=== PATIENT | female | born 1965 | race Caucasian/White ===

== ENCOUNTER → 2017-12-13 12:54 | Outpatient (CLI) | payer OTHER, SELFPAY | PROVIDERS: Family Provider Family Medicine; PCP Family Medicine; Visit Provider Physician Assistant Surgical | DX: J02.9 Acute pharyngitis, unspecified (principal) | CPT/HCPCS: 87081 ==

== ENCOUNTER → 2018-01-09 11:33 | Outpatient (CLI) | payer OTHER, SELFPAY ==
--- NOTE | 2018-01-09 11:36 | RAD_ITS ---
STUDY: X-RAY - RIGHT FEMUR REASON FOR STUDY: Female, 52 years old. Pain. TECHNIQUE: Radiological exam, femur, minimum 2 views COMPARISON: None. FINDINGS: Normal visualized femur. Degenerative changes of the knee. Normal visualized soft tissue structure. There is no demonstrated fracture or destructive process. RAD/Femur Min 2 Views IMPRESSION: No acute abnormality. Electronically Signed: Laurent Fischer MD at 22:18 EDT , Service support ,
--- NOTE | 2018-01-09 12:00 | RAD_ITS ---
STUDY: X-RAY - RIGHT KNEE REASON FOR EXAM: Female, 52 years old. Pain. TECHNIQUE: 3 view(s) of the knee. COMPARISON: None. FINDINGS: Normal visualized distal femur. Normal visualized proximal tibia and fibula. Normal proximal tibiofibular articulation. There is no demonstrated fracture. There is mild degenerative arthrosis of the medial femorotibial compartment. Normal lateral femorotibial compartment. 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 There is no demonstrated joint effusion. The soft tissue structures are unremarkable. RAD/Knee 4 or More Views IMPRESSION: No acute fracture or dislocation. Degenerative changes. Electronically Signed: Laurent Fischer MD at 22:19 EDT , Service support ,
== END ==
PROVIDERS: Family Provider Family Medicine; PCP Family Medicine; Visit Provider Family Medicine
DX: M25.561 Pain in right knee (principal)
CPT/HCPCS: 73552; 73564

== ENCOUNTER → 2018-03-22 16:43 | Outpatient (CLI) | payer OTHER, SELFPAY ==
[2018-03-07 14:20] VITALS: BMI 34.7
[2018-03-22 17:42] LABS: Follicle Stimulating Hormone 46.5 mIU/mL
== END ==
PROVIDERS: Family Provider Family Medicine; PCP Family Medicine; Referring Provider Nurse Practitioner Women's Health; Visit Provider Nurse Practitioner Women's Health
DX: N92.6 Irregular menstruation, unspecified (principal)
CPT/HCPCS: 36415; 83001

== ENCOUNTER → 2018-04-10 07:55 | Outpatient (CLI) | payer OTHER, SELFPAY ==
[2018-03-07 14:20] VITALS: BMI 34.7
--- NOTE | 2018-04-10 08:00 | US_ITS ---
STUDY: ULTRASOUND OF THE FEMALE PELVIS - COMPLETE REASON FOR EXAM: Female, 53 years old. LMP: TECHNIQUE: TECHNICAL QUALITY: Adequate. COMPARISON: None. FINDINGS: The uterus is anteverted and is in a midline position. The uterus measures 8.4 x 4.9 x 3.8 cm. Normal uterine cervix. The endometrium measures 2.6 mm in thickness. There is no demonstrated endometrial mass. There is no demonstrated myometrial mass. The patient does not have an I.U.D. The right ovary is visualized. The right ovary measures 2 x 1.8 x 0.3 cm with a small follicle measures 6.6 x 7 mm. There is no right ovarian cyst or ovarian mass. There is no visualized right adnexal mass or complex lesion. There is normal arterial and normal venous vascularity. The left ovary is visualized. The left ovary measures 2.3 x 2.3 x 0.8 cm cm. There is no left ovarian cyst or ovarian mass. There is no visualized left adnexal mass or complex lesion. There is normal arterial and normal venous vascularity. There is no fluid in the cul-de-sac. US/Transvaginal Non- IMPRESSION: Normal female pelvis. Electronically Signed: Branden Vitale, at 13:11 EST Tel , Service support ,
--- NOTE | 2018-04-10 08:00 | US_ITS ---
STUDY: ULTRASOUND OF THE FEMALE PELVIS - COMPLETE REASON FOR EXAM: Female, 53 years old. LMP: TECHNIQUE: TECHNICAL QUALITY: Adequate. COMPARISON: None. FINDINGS: The uterus is anteverted and is in a midline position. The uterus measures 8.4 x 4.9 x 3.8 cm. Normal uterine cervix. The endometrium measures 2.6 mm in thickness. There is no demonstrated endometrial mass. There is no demonstrated myometrial mass. The patient does not have an I.U.D. The right ovary is visualized. The right ovary measures 2 x 1.8 x 0.3 cm with a small follicle measures 6.6 x 7 mm. There is no right ovarian cyst or ovarian mass. There is no visualized right adnexal mass or complex lesion. There is normal arterial and normal venous vascularity. The left ovary is visualized. The left ovary measures 2.3 x 2.3 x 0.8 cm cm. There is no left ovarian cyst or ovarian mass. There is no visualized left adnexal mass or complex lesion. There is normal arterial and normal venous vascularity. There is no fluid in the cul-de-sac. US/Pelvic (Non ) IMPRESSION: Normal female pelvis. Electronically Signed: Branden Vitale, at 13:11 EST Tel , Service support ,
== END ==
PROVIDERS: Family Provider Family Medicine; PCP Family Medicine; Referring Provider Nurse Practitioner Women's Health; Visit Provider Nurse Practitioner Women's Health
DX: N92.6 Irregular menstruation, unspecified (principal)
CPT/HCPCS: 76830; 76856; 93976

== ENCOUNTER → 2018-05-09 16:30 | Outpatient (CLI) | payer OTHER, SELFPAY ==
[2018-03-07 14:20] VITALS: BMI 34.7
--- NOTE | 2018-05-09 16:50 | RAD_ITS ---
HISTORY: patient states she has had neck pain for many years, recently pain in left arm running from neck started a couple weeks ago COMPARISON: None FINDINGS: XR Spine Cervical 6 views The cervical vertebra show normal height and alignment. No fracture or acute disease. C3-4 mild disc space narrowing. The posterior elements appear intact. No spondylolisthesis. Neural foramina appear patent. The C1-C2 relationship appears normal. Small cervical rib on the right. RAD/Cerv Spine 4 or 5 Views IMPRESSION: 1. No significant findings. Minor degenerative change. 2. Normal cervical vertebral alignment. 3. Small cervical rib on the right. at [id number] Reported and signed by: Kevin Hook MD Electronically Signed: Kevin Hook, at 4:25 EST Tel , Service support ,
--- OUTSIDE RECORDS SUMMARY | 2018-07-11 22:55 | XMS RPT_ITS ---
:1965 Author Organization [place] Support Name Relationship Address Phone RYANADAMA Unavailable [address] + [place] [address] [facility] Unavailable [address] + [place] [address] ADAMA DAVIS Unavailable [address] + [place] [address] [facility] Unavailable [address] + [place] [address] ADAMA DAVIS Unavailable [address] + [place] [address] [facility] Unavailable [address] + [place] [address] ADAMA DAVIS Unavailable [address] + [place] [address] [facility] Unavailable [address] + [place] [address] ADAMA DAVIS Unavailable [address] + [place] [address] [facility] Unavailable [address] + [place] [address] ADAMA DAVIS Unavailable [address] + [place] [address] [facility] Unavailable [address] + [place] [address] ADAMA DAVIS Unavailable [address] + [place] [address] [facility] Unavailable [address] + [place] [address] ADAMA DAVIS Unavailable [address] + [place] [address] [facility] Unavailable [address] + [place] [address] ADAMA DAVIS Unavailable [address] [phone] [place] [address] [facility] Unavailable [address] + [place] [address] Care Team Providers Name Role Phone Teressa Joe Attending Unavailable Heath, Teressa Referring Unavailable TOMCHAK, MAYANK Primary Care Unavailable TOMCHAK, MAYANK Attending Unavailable TOMCHAK, MAYANK Referring Unavailable TOMCHAK, MAYANK Primary Care Unavailable [facility] [facility] Attending Unavailable TOMCHAK, MAYANK Referring Unavailable Dylan, Jason Attending Unavailable TOMCHAK, MAYANK Referring Unavailable TOMCHAK, MAYANK Primary Care Unavailable Dylan, Jason Attending Unavailable Dylan, Jason Referring Unavailable TOMCHAK, MAYANK Primary Care Unavailable ASSESSMENT, HEALTH RISK Attending Unavailable ASSESSMENT, HEALTH RISK Referring Unavailable TOMCHAK, MAYANK Primary Care Unavailable TOMCHAK, MAYANK Attending Unavailable TOMCHAK, MAAYNK Referring Unavailable TOMCHAK, MAYANK Primary Care Unavailable Heath, Teressa Attending Unavailable TOMCHAK, MAYANK Referring Unavailable [place], Teressa Attending Unavailable [place], Teressa Referring Unavailable TOMCHAK, MAYANK Primary Care Unavailable PROBLEMS PROBLEMS DATE TYPE CONDITION / CODE ATTENDING STATUS SOURCE 05/09/2018 Unknown M54.2 - MAYANK GREENWOOD Active [place] Cervicalgia / Community M54.2(ICD-10) Hospital Repository 03/07/2018 Unknown N92.6 - Irregular [place], Teressa Active [place] menstruation, Community unspecified / Hospital N92.6(ICD-10) Repository 01/09/2018 Unknown M25.561 - Pain in MAYANK GREENWOOD Active [place] right knee / Community M25.561(ICD-10) Hospital Repository 12/13/2017 Unknown J02.9 - Acute Jason Richardson Active [facility] [place] pharyngitis, Community unspecified / Hospital J02.9(ICD-10) Repository PROCEDURES PROCEDURES No Procedure Records FoundRESULTS RESULTS CERV SPINE 4 OR 5 Observed: 05/09/2018 Status: F Source: [place] VIEWS 4:43 PM [facility] HOSPITAL REPOSITORY [facility] Imaging Services [address] [place] [address] Cerv Spine 4 or 5 Views MR#: [id number] Acct: [id number] Name: LUIS DAVIS Rep #: [id number] : 1965 F 53 From: Kevin Hook MD PCP: Mayank Greenwood MD Status: REG CLI Study: Cerv Spine 4 or 5 Views Date of Exam: 05/09/18 Exam# [id number] Ordering Dr: Mayank Greenwood MD HISTORY: patient states she has had neck pain for many years, recently pain in left arm running from neck started a couple weeks ago COMPARISON: None FINDINGS: XR Spine Cervical 6 views The cervical vertebra show normal height and alignment. No fracture or acute disease. C3-4 mild disc space narrowing. The posterior elements appear intact. No spondylolisthesis. Neural foramina appear patent. The C1-C2 relationship appears normal. Small cervical rib on the right. RAD/Cerv Spine 4 or 5 Views IMPRESSION: 1. No significant findings. Minor degenerative change. 2. Normal cervical vertebral alignment. 3. Small cervical rib on the right. at [id number] Reported and signed by: Kevin Hook MD Electronically Signed: Kevin Hook, at 4:25 EST Tel , Service support , CC: Mayank Greenwood MD Generator Worker: Signed TRANSVAGINAL Observed: 04/10/2018 Status: F Source: [place] NON- 8:00 AM [facility] REPOSITORY [facility] Imaging Services [address] [place] [address] Transvaginal Non- MR#: [id number] Acct: [id number] Name: LUIS DAVIS Rep #: [id number] : 1965 F 53 From: Branden Vitale MD PCP: Mayank Greenwood MD Status: REG CLI Study: Transvaginal Non- Date of Exam: 04/10/18 Exam# [id number] Ordering Dr: Teressa Joe RADIATION MONITOR-C ADDENDUM by Severiano Langford MD on 04/20/18 at 0950 ADDENDUM This is an addendum report. There is a 2.2 cm x 1.6 cm x 1.5 cm uterine fibroid along the anterior uterine fundus. Electronically Signed: Severiano Langford MD at 9:50 EST Tel [phone], Service support , 04/20/18954 Date cc: REGINA Joe; Mayank Greenwood MD * Signed ADDENDUM by Severiano Langford MD on 04/20/18 at 0950 US/Transvaginal Non- 04/20/18954 Date cc: REGINA Joe; Mayank Greenwood MD * Signed STUDY: ULTRASOUND OF THE FEMALE PELVIS - COMPLETE REASON FOR EXAM: Female, 53 years old. LMP: TECHNIQUE: TECHNICAL QUALITY: Adequate. COMPARISON: None. FINDINGS: The uterus is anteverted and is in a midline position. The uterus measures 8.4 x 4.9 x 3.8 cm. Normal uterine cervix. The endometrium measures 2.6 mm in thickness. There is no demonstrated endometrial mass. There is no demonstrated myometrial mass. The patient does not have an I.U.D. The right ovary is visualized. The right ovary measures 2 x 1.8 x 0.3 cm with a small follicle measures 6.6 x 7 mm. There is no right ovarian cyst or ovarian mass. There is no visualized right adnexal mass or complex lesion. There is normal arterial and normal venous vascularity. The left ovary is visualized. The left ovary measures 2.3 x 2.3 x 0.8 cm cm. There is no left ovarian cyst or ovarian mass. There is no visualized left adnexal mass or complex lesion. There is normal arterial and normal venous vascularity. There is no fluid in the cul-de-sac. US/Transvaginal Non- IMPRESSION: Normal female pelvis. Electronically Signed: Branden Vitale, at 13:11 EST Tel , Service support , CC: REGINA Joe; Mayank Greenwood MD Generator Worker: Signed PELVIC (NON ) Observed: 04/10/2018 Status: F Source: [place] 8:00 AM [facility] REPOSITORY [facility] Imaging Services [address] [place] [address] Pelvic (Non ) MR#: [id number] Acct: [id number] Name: LUIS DAVIS Rep #: [id number] : 1965 F 53 From: Branden Vitale MD PCP: Mayank Greenwood MD Status: REG CLI Study: Pelvic (Non ) Date of Exam: 04/10/18 Exam# [id number] Ordering Dr: Teressa Joe RADIATION MONITOR-C ADDENDUM by Severiano Langford MD on 04/20/18 at 0950 ADDENDUM This is an addendum report. There is a 2.2 cm x 1.6 cm x 1.5 cm uterine fibroid along the anterior uterine fundus. Electronically Signed: Severiano Langford MD at 9:50 EST Tel [phone], Service support , 04/20/1850 Date cc: REGINA Joe; Mayank Greenwood MD * Signed ADDENDUM by Severiano Langford MD on 04/20/18 at 0950 US/Pelvic (Non ) 04/20/1855 Date cc: REGINA Joe; Mayank Greenwood MD * Signed STUDY: ULTRASOUND OF THE FEMALE PELVIS - COMPLETE REASON FOR EXAM: Female, 53 years old. LMP: TECHNIQUE: TECHNICAL QUALITY: Adequate. COMPARISON: None. FINDINGS: The uterus is anteverted and is in a midline position. The uterus measures 8.4 x 4.9 x 3.8 cm. Normal uterine cervix. The endometrium measures 2.6 mm in thickness. There is no demonstrated endometrial mass. There is no demonstrated myometrial mass. The patient does not have an I.U.D. The right ovary is visualized. The right ovary measures 2 x 1.8 x 0.3 cm with a small follicle measures 6.6 x 7 mm. There is no right ovarian cyst or ovarian mass. There is no visualized right adnexal mass or complex lesion. There is normal arterial and normal venous vascularity. The left ovary is visualized. The left ovary measures 2.3 x 2.3 x 0.8 cm cm. There is no left ovarian cyst or ovarian mass. There is no visualized left adnexal mass or complex lesion. There is normal arterial and normal venous vascularity. There is no fluid in the cul-de-sac. US/Pelvic (Non ) IMPRESSION: Normal female pelvis. Electronically Signed: Branden Vitale, at 13:11 EST Tel , Service support , CC: REGINA Joe; Mayank Greenwood MD Generator Worker: Signed FOLLICLE STIMULATING Collected: 03/22/2018 Status: F Source: [place] HORMONE 4:49 PM [facility] REPOSITORY TYPE CODE TESTS RESULT OUT OF RANGE REFERENCE UNITS LAB L3100.5125 mIU/mL Normal FSH 46.5 Result Comment: NORMAL REFERENCE RANGES FEMALE FOLLICULAR 2.3 - 12.6 mIU/mL MID-CYCLE PEAK 5.2 - 17.5 mIU/mL LUTEAL 1.7 - 12.9 mIU/mL POST-MENOPAUSAL ON MHT 5.9 - 72.8 mIU/mL NOT ON MHT 12.7 - 132.2 mlU/mL MALE 0.7 - 10.8 mIU/mL NEW TEST METHOD AND REFERENCE RANGES SEPTEMBER 06, 2011 Performed By: #### L3100.5125 #### [facility] [address] [place], [address] TOOL AND DIE SUPERVISOR OFFICE VISIT Observed: 03/07/2018 Status: F Source: [place] REPORT 4:39 PM [facility] REPOSITORY [facility] [address] [place] [address] OFFICE VISIT Date of Service: 03/07/18 MR#: [id number] Acct: [id number] Name: LUIS DAVIS Rep #: [id number] : 1965 Provider: REGINA Joe Age/Sex: 53/F Location: [facility] [place] [facility] Status: Signed Intake Vital Signs03/07/18 Height 5 ft 4 in 03/07/18 Weight: 202 lb 03/07/18 Body Mass Index (BMI) 34.7 03/07/18 Blood Pressure 118/80 Intake Visit Reasons: ANNUAL Metal Tube Cutter Required: No Is patient in pain?: No Allergies chlorpheniramine [From Tylenol Sinus Congestion Pain] Allergy (Verified 03/07/18 14:22) Unknown guaifenesin [From Tylenol Sinus Congestion Pain] Allergy (Verified 03/07/18 14:22) Unknown phenylephrine HCl [From Tylenol Sinus Congestion Pain] Allergy (Verified 03/07/18 14:22) Unknown Medications Paroxetine HCl [Paxil] 10 mg PO DAILY 10/28/14 [History Confirmed 03/07/18] aspirin 500 mg-sod bicarb 1,985 mg-citric acid 1,000 mg efferv tablet ea PO 12/13/17 [History Confirmed 03/07/18] Is last menstrual period known: No Post menopausal: No Patient : No : No Nurse's Note: Pt. states she has had random menses. Several within a few months and then none for several months. When having menses the bleeding has been extremely heavy with cramps. [facility] Medical History HISTORY OF BUNION REMOVAL (Acute) Hay fever (Acute) Hemorrhoids (Acute) History of lipoma (Acute) Knee pain (Acute) NECK/BACK PAIN (Acute) Shoulder pain (Acute) Social History Smoking Status: Never smoker alcohol intake: current alcohol intake frequency: holidays/special occasions only Pregancy History 2 Elective abortions Hx Para 2 Spontaneous abortions Past Pregnancies Del. DatName GA/WeeksOutcome Route [facility] LocaProviderFOB e ht en tn Unknown William 1987 Unknown Gabby 1989 HPI ANNUAL: Details: LUIS DAVIS is a 53 year old who presents for annual exam. Had menses July, August and November. Last PAP: 2014 History of abnormal PAP: no Last mammogram: 03/2017 History of abnormal mammogram: neg biopsy Colon cancer screening: none ROS Const Constitutional: Denies fatigue, weight gain or weight loss Cardio Card: Denies chest pain Resp Resp: Denies cough or shortness of breath with activity GI GI: Denies abdominal pain, constipation, change in stools, vomiting or bloating : Reports as per HPI; denies urinary frequency, pelvic pain, urinary urgency, vaginal discharge, vaginal itching, urinary incontinence or difficulty urinating Exam Const General: cooperative, healthy appearing, no acute distress, well developed Orientation: alert, oriented to person, oriented to place HENDE Head: normal to inspection Neck Neck: normal visual inspection Thyroid: thyroid normal Lymphatic: no lymphadenopathy noted Chest Breast inspection: normal inspection of the breasts, normal inspection of the axillae Breast palpation: normal palpation of the breasts, normal palpation of the axillae, no axillary lymphadenopathy Resp Effort AND Inspection: normal respiratory effort GI Palpation: soft, nontender, no masses Rectal Exam: deferred External Female Exam: normal external appearance, normal appearance of the urethra Urethra: normal appearance of the urethra, normal palpation Speculum Exam - Vagina: normal appearance of the vagina, normal vaginal discharge Speculum Exam - Cervix: normal appearance of the cervix Bimanual Exam- Vagina AND Uterus: normal bimanual exam, uterine size normal, uterine shape normal, uterus non-tender Bimanual Exam- Adnexa, other: normal adnexae, no adnexal masses, adnexae non-tender, pelvic support normal Pelvic Support: normal Neuro General: alert, oriented x3 Psych Affect: normal affect Assessment AND Plan Problems 1. Encounter for gynecological examination with abnormal finding Z01.411 2. Dysfunctional uterine bleeding N93.8 Plan Completed breast and pelvic exam Reviewed diet and exercise Pap 2014 Mammogram scheduled Ultrasound and FSH: call results. Consider EMB dependent on those Colonoscopy encouraged Bone density NA RTO 1 year, prn with problems Teressa Joe ADVERTISING EDITOR Orders Orders: Coding Level of Care Code Off vis,est,prev 40-64yrs Diagnoses Encounter for gynecological examination with abnormal finding Z01.411 Gynecological examination findings: abnormal findings PRESENT Dysfunctional uterine bleeding N93.8 03/07/18 1639 <Electronically signed by Teressa STEWART> Date Teressa STEWART Cosigner Signature: Date (if applicable) CC: FEMUR MIN 2 VIEWS Observed: 01/09/2018 Status: F Source: [place] 11:37 AM [facility] REPOSITORY [facility] Imaging Services [address] [place] [address] Femur Min 2 Views MR#: [id number] Acct: [id number] Name: LUIS DAVIS Rep #: [id number] : 1965 F 52 From: Laurent Fischer MD PCP: Mayank Greenwood MD Status: REG CLI Study: Femur Min 2 Views Date of Exam: 01/09/18 Exam# [id number] Ordering Dr: Mayank Greenwood STUDY: X-RAY - RIGHT FEMUR REASON FOR STUDY: Female, 52 years old. Pain. TECHNIQUE: Radiological exam, femur, minimum 2 views COMPARISON: None. FINDINGS: Normal visualized femur. Degenerative changes of the knee. Normal visualized soft tissue structure. There is no demonstrated fracture or destructive process. RAD/Femur Min 2 Views IMPRESSION: No acute abnormality. Electronically Signed: Laurent Fischer MD at 22:18 EDT , Service support , CC: Mayank Greenwood MD Generator Worker: Signed KNEE 4 OR MORE Observed: 01/09/2018 Status: F Source: [facility] 11:37 AM [facility] REPOSITORY [facility] Imaging Services [address] [place] [address] Knee 4 or More Views MR#: [id number] Acct: [id number] Name: LUIS DAVIS Rep #: [id number] : 1965 F 52 From: Laurent Fischer MD PCP: Mayank Greenwood MD Status: REG CLI Study: Knee 4 or More Views Date of Exam: 01/09/18 Exam# [id number] Ordering Dr: Mayank Greenwood STUDY: X-RAY - RIGHT KNEE REASON FOR EXAM: Female, 52 years old. Pain. TECHNIQUE: 3 view(s) of the knee. COMPARISON: None. FINDINGS: Normal visualized distal femur. Normal visualized proximal tibia and fibula. Normal proximal tibiofibular articulation. There is no demonstrated fracture. There is mild degenerative arthrosis of the medial femorotibial compartment. Normal lateral femorotibial compartment. 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 There is no demonstrated joint effusion. The soft tissue structures are unremarkable. RAD/Knee 4 or More Views IMPRESSION: No acute fracture or dislocation. Degenerative changes. Electronically Signed: Laurent Fischer MD at 22:19 EDT , Service support , CC: Mayank Greenwood MD Generator Worker: Signed [employer], EMPLOYEE Collected: 01/03/2018 Status: F Source: [place] 7:48 AM [facility] REPOSITORY TYPE CODE TESTS RESULT OUT OF RANGE REFERENCE UNITS LAB L400.3000 Yellow COLOR Normal Yellow LAB L400.3050 Clear Normal CLARITY Clear LAB L400.3200 Normal mg/dl Normal GLUCOSE, UR Normal LAB L400.3300 Negative mg/dL Normal BILIRUBIN URINE Negative LAB L400.3400 Negative mg/dl Normal KETONE UR Negative LAB L400.3465 1.002-1.030 Normal SP.GR. DIPSTX 1.020 LAB L400.3550 5.0 - 8.0 pH UR Normal 6.0 LAB L400.3600 Negative mg/dl PROT Normal DIPSTX Negative LAB L400.3700 Normal mg/dl Normal UROBILI Normal LAB L400.3750 Negative Normal NITRITE UR Negative LAB L400.3780 Negative /ul Normal OCCULT BLOOD-UR Negative LAB L400.3800 Negative /ul High LEUK 25 ESTERASE Performed By: #### L400.0100 #### [facility] [address] [place], [address] CBC, EMPLOYEE Collected: 01/03/2018 Status: F Source: [place] 7:48 AM [facility] REPOSITORY TYPE CODE TESTS RESULT OUT OF RANGE REFERENCE UNITS LAB L100.1000 4.4-11.0 K/mm3 Normal WBC 4.4 LAB L100.1200 4.2-5.4 M/mm3 Normal RBC 4.72 LAB L100.1300 12.0-15.0 g/dl Normal HGB 14.1 LAB L100.1400 37-47 % Normal HCT 41.9 LAB L100.1500 81-99 fL Normal MCV 88.8 LAB L100.1600 27.0-32.0 pg Normal MCH 29.9 LAB L100.1700 32-36 g/gl Normal MCHC 33.7 LAB L100.1810 11.6-14.6 % Normal RDW CV 13.1 LAB L100.1820 35.1-43.9 fl Normal RDW SD 42.3 LAB L100.1900 150-450 K/mm3 Normal PLT 329 LAB L100.2000 6.2-12.0 fl Normal MPV 9.4 LAB L100.2110 47-70 % Normal NEUT% 57.1 LAB L100.2210 19-41 % Normal LY% 31.5 LAB L100.2310 0-10 % Normal MONO% 8.4 LAB L100.2410 0-5 % Normal EO% 2.3 LAB L100.2510 0-1 % Normal BASO% 0.7 LAB L100.2620 2.0-7.7 X10 3/uL Normal Absolute Neut 2.5 LAB L100.2720 0.83-4.51 X10 3/ul Normal Absolute Lymph 1.39 Performed By: #### L100.0200 #### [facility] [address] [place], [address] NICOTINE URINE DRUG Collected: 01/03/2018 Status: F Source: [facility] [employer] SCREEN 7:48 AM [facility] REPOSITORY TYPE CODE TESTS RESULT OUT OF RANGE REFERENCE UNITS LAB L505.6250 TO BE Normal CONFIRMED Result Comment: CONFIRMATORY TESTING FOR ALL POSITIVE URINE DRUG SCREEN RESULTS WILL ONLY BE SENT OUT UPON PHYSICIAN ORDER. The results of Urine Drug Screen methods provide only preliminary analytical test results. A more specific alternate chemical method must be used in order to obtain a confirmed analytical result. Gas chromatography/mass spectrometery (GC/MS) is the preferred confirmatory method. Clinical consideration and professional judgement should be applied to any drug of abuse test result, particularly when preliminary positive results are used. LAB L505.6229 <200 ng/mL Normal COT DRG Negative SCREEN Result Comment: Cotinine is the first-stage metabolite of Nicotine. Performed By: #### L505.6240 #### [facility] [address] [place], [address] EMPLOYEE PROFILE Collected: 01/03/2018 Status: F Source: [place] 7:48 AM [facility] REPOSITORY TYPE CODE TESTS RESULT OUT OF RANGE REFERENCE UNITS LAB L501.0100 74-106 mg/dL Normal GLU 89 Result Comment: Please note revised GLUCOSE reference range effective 2017. LAB L501.1000 7-18 mg/dL Normal BUN 12 LAB L501.1100 0.55-1.02 mg/dL Normal CREAT,SERUM 0.72 Result Comment: The validity of the calculated GFR AND GFRAA in patients over 70 years has not been determined. Clinical correlation is essential. LAB L501.1110 >60 mL/min Normal EST GFR 89 Result Comment: Non- GFR Calc LAB L501.1115 >60 mL/min Normal EST GFR - AA 107 Result Comment: GFR Calc LAB L501.1300 10-20 RATIO Normal BUN/CRE 16.6 LAB L501.1400 2.6-6.0 mg/dL Normal URIC 5.5 Result Comment: The drugs N-Acetylcysteine and Metamizole may falsely depress this assay. LAB L501.1500 6.4-8.2 g/dL Normal T PROT 7.3 LAB L501.1800 3.2-5.0 g/dL Normal ALB 3.4 LAB L501.1950 2.2-4.2 g/dL Normal GLOB 3.9 LAB L501.2000 0.9-2.4 RATIO Normal A/G 0.9 LAB L501.2200 8.5-10.1 mg/dL Normal CA 8.7 LAB L501.2300 2.5-4.9 mg/dL Normal PHOS 3.5 LAB L501.4100 15-37 U/L Normal AST 17 LAB L501.4305 45-117 U/L Normal ALK P 75 LAB L501.4405 13-56 U/L Normal ALT 20 LAB L501.4600 0.20-1.00 mg/dL Normal T BILI 0.40 LAB L501.4700 0.00-0.30 mg/dL Normal D BILI 0.11 LAB L501.4900 200 mg/dL High CHOL 216 Result Comment: <200 mg/dL Desirable 200-240 mg/dL Borderline >240 mg/dL High Risk LAB L501.5000 mg/dL Normal TRIG 119 Result Comment: The drugs N-Acetylcysteine and Metamizole may falsely depress this assay. Serum Triglycerides Reference Interval Normal <150 mg/dL Borderline high 150 - 199 mg/dL High 200 - 499 mg/dL Very High > or = 500 mg/dL LAB L501.5300 136-145 mmol/L Normal NA 142 LAB L501.5600 3.5-5.1 mmol/L Normal K 4.4 LAB L501.5900 98-107 mmol/L Normal CL 106 LAB L501.6100 21.0-32.0 mmol/L Normal CO2 28.0 LAB L501.6200 5-15 Normal 8 GAP LAB L501.6400 mg/dL Normal HDL 48 Result Comment: The drugs N-Acetylcysteine and Metamizole may falsely depress this assay. Reference Range HDL <40 mg/dL Low HDL Cholesterol HDL >or= 60 mg/dL High HDL Cholesterol LAB L501.6475 Normal CHOL:HDL 4.50 LAB L501.6500 0-130 mg/dL High LDL 144 LAB L501.6600 5-40 mg/dL Normal VLDL 24 LAB L504.2610 84-246 U/L Normal LDH 150 Performed By: #### L500.2900 #### [facility] [address] [place], [place], [address] Observed: 12/14/2017 Status: F Source: [place] CULTURE, R/O STREP A 1:21 PM [facility] REPOSITORY HEENA Culture No Group A Beta Streptococcus isolated. * This cultures intended use is to screen for Beta Streptococcus A only. All other pathogens and potential pathogens will not be screened for or reported. If a complete workup of all potential pathogens is indicated an order for a routine throat culture is required. Performed By: #### M100.010 #### [facility] [address] [place], [place], [address] URGENT CARE VISIT Observed: 12/13/2017 Status: F Source: [place] REPORT 11:46 AM [facility] REPOSITORY [facility] [address] [place] [address] [address] [place] [address] OFFICE VISIT Date of Service: 12/13/17 MR#: [id number] Acct: [id number] Name: LUIS DAVIS Rep #: [id number] : 1965 Provider: Jason CRAIN Age/Sex: 52/F Location: [facility] Status: Signed Intake Vital Signs12/13/17 Height 5 ft 4 in 12/13/17 Weight: 195 lb 12/13/17 Body Mass Index (BMI) 33.5 12/13/17 Blood Pressure 130/84 Intake Visit Reasons: SORE THROAT, HEAD CONGESTION/CHEST Metal Tube Cutter Required: No Accompanied by: SELF Is patient in pain?: No Allergies chlorpheniramine [From Tylenol Sinus Congestion Pain] Allergy (Verified 12/13/17 10:43) Unknown guaifenesin [From Tylenol Sinus Congestion Pain] Allergy (Verified 12/13/17 10:43) Unknown phenylephrine HCl [From Tylenol Sinus Congestion Pain] Allergy (Verified 12/13/17 10:43) Unknown Medications Paroxetine HCl [Paxil] 10 mg PO DAILY 10/28/14 [History Confirmed 12/13/17] aspirin 500 mg-sod bicarb 1,985 mg-citric acid 1,000 mg efferv tablet ea PO 12/13/17 [History Confirmed 12/13/17] PFSH Medical History HISTORY OF BUNION REMOVAL (Acute) Hay fever (Acute) Hemorrhoids (Acute) History of lipoma (Acute) Knee pain (Acute) NECK/BACK PAIN (Acute) Shoulder pain (Acute) Social History Smoking Status: Never smoker alcohol intake: current alcohol intake frequency: holidays/special occasions only HPI HPI Details: LUIS DAVIS, is a 52 F who presents to the office today for concern of sore throat for the past 24 hours. Patient states she has been around several coworkers who have reported to have strep. She denies any fever, chills, sweats. No nausea, vomiting, diarrhea. No other associated symptoms or alleviating/aggravating factors. ROS Const Constitutional: No fever(s), headache(s), anorexia, chills or abnormal sleep pattern ENT ENT: Positive for post nasal drip, sore throat, nasal congestion and nasal discharge; no headache(s) or ear pain Resp Respiratory: No shortness of breath Cardio Cardiology: No irregular heart rhythm or palpitations Gastro GI: No nausea/dyspepsia Neuro Neurology: No headache(s) or behavioral changes Psych Psychiatric: No abnormal sleep pattern, No behavioral changes Exam Const General: cooperative, healthy appearing HENDE Head: normal to inspection Ears: hearing grossly normal bilaterally, TM's normal bilaterally, EAC's normal Nose: external nose normal, nasal discharge clear Mouth: oral mucosae normal Throat: abnormal tonsil bilaterally Resp Effort AND Inspection: normal respiratory effort Auscultation: Bilateral: Clear to Auscultation Cardio Palpation: normal PMI Rate: regular rate Rhythm: regular rhythm Neuro General: CN's II-XI intact bilaterally, alert Psych Appearance: grossly normal Mental Status: mental status grossly normal Results BMSRAPIDSTREPA Office Rapid Strep A Negative Last Edit by Jo Kat on 12/13/17 10:55 Assessment AND Plan Plan Rapid strep in the office negative, patient advised we will send swab for culture. Encouraged to get plenty of rest, drink lots of clear liquids, and use Tylenol or Ibuprofen (unless contraindicated) for fever and comfort. Patient also educated on other symptomatic management techniques. To be seen in 7-10 days if no improvement; sooner if worsening of symptoms. Orders Orders: Medications Discontinued: oxycodone-acetaminophen 5-325 mg Di1 - 2 tabs PO Q6H PRN PRN Moderate-Se Jo Kat scontinued Reason: Pt refuses the tesvere Pain (-01/25) t Coding Level of Care Code Off vis,new,level 3 12/13/17 1146 <Electronically signed by Jason CRAIN> Date Jason CRAIN Cosigner Signature: Date (if applicable) CC: ALLERGIES ALLERGIES DATE TYPE / CODE NAME / CODE REACTION SEVERITY SOURCE 03/07/2018 Drug phenylephrine Unknown Unknown [place] Allergy/416 HCl/[id number]([facility] [id number]([facility] CT) Repository 03/07/2018 Drug guaifenesin/[id number] Unknown Unknown [place] Allergy/416 724(RXNORM) [facility] [id number]([facility] CT) Repository 03/07/2018 Drug chlorpheniramine/F0 Unknown Unknown [place] Allergy/416 [id number](RXNORM) [facility] [id number][facility] CT) Repository ENCOUNTERS ENCOUNTERS ADMIT/DISCHARGE ACCOUNT ADMITTING ENCOUNTER LOCATION SOURCE NUMBER CLASS 05/09/2018 [id number] Ambulatory [place] 7 [facility] ing:RAD.FUTUR Repository E 04/10/2018 [id number] Ambulatory [place] 6 [facility] ing:OPUS Repository 03/22/2018 [id number] Ambulatory [place] 6 [facility] ing:LAB Repository 03/07/2018/ [id number] Ambulatory BMSBuilding:B [place] 8 5 [facility] Repository 01/09/2018 [id number] Ambulatory [place] 5 [facility] ing:RAD.FUTUR Repository E 01/03/2018 [id number] Ambulatory [place] 1 [facility] ing:EMPH Repository 12/13/2017 [id number] Ambulatory [place] 0 [facility] ing:LABSPEC Repository 12/13/2017/ [id number] Ambulatory BMSBuilding:B [place] 8 2 [facility] Repository 08/30/2017 [id number] Ambulatory BMSBuilding:B [place] 2 [place] Repository PAYERS PAYERS ENCOUNTER GUARANTOR PAYER SUBSCRIBER SOURCE 05/09/2018 LUIS MARQUEZ Primary Insurance:[facility] LUIS Montgomery [id number] [facility] ARDREYDOB: [address] [id number] [address]Jlc: Number: Repository [id number] (HP) Date:4172-69-74[address] [address]FCYTJIB, [place] [address]ZM: CHECK WEBSITE 05/09/2018 Secondary NOT GIVENUNK [place] Insurance:SELF PAY [facility] Number: Effective Repository Date:2018-05-09 04/10/2018 LUIS MARQUEZ Primary Insurance:[facility] LUIS Martinezoster [id number] [facility] ARDREYDOB: [address] [address]Coi: Number: Repository [id number] (HP) Date:0423-78-17KK [address] [address]JUCRRWSX, [place] [address]XC: CHECK WEBSITE 04/10/2018 Secondary NOT GIVENUNK [place] Insurance:SELF PAY [facility] Number: Effective Repository Date:2018-03-07 03/22/2018 E [place] Primary Insurance:[facility] Javon Martinezoster [id number] [facility] ARDREYDOB: [address] [address]Ncy: Number: Repository [id number] (HP) Date:0664-70-76YH [address] [address]PJAXGEXCQ, [place] [address]CA: CHECK WEBSITE 03/22/2018 Secondary NOT GIVENUNK [place] Insurance:SELF PAY [facility] Number: Effective Repository Date:2018-03-22 03/07/2018 E [place] Primary Insurance:[facility] Javon Martinezoster [id number] [facility] ARDREYDOB: [address] [address]Ktf: Number: Repository [id number] (HP) Date:7807-29-51CV [address] [address]ZCXYDQQKS, [place] [address]MF: CHECK WEBSITE 03/07/2018 Secondary NOT GIVENUNK [place] Insurance:SELF PAY [facility] Number: Effective Repository Date:2018-03-07 01/09/2018 E [place] Primary Insurance:[facility] Javon Martinezoster [id number] [facility] ARDREYDOB: [address] [id number] [facility] [address]Vsp: Number: Repository [id number] () Date:1050-99-48KH [address] [address]UXFDSAHO, [place] [address]EB: CHECK WEBSITE 01/09/2018 Secondary NOT GIVENUNK [place] Insurance:SELF PAY [facility] Number: Effective Repository Date:2018-01-05 01/03/2018 E [place] Primary NOT GIVENUNK [place] [id number] TR Insurance:SELF PAY [address] [address]Bpo: Number: Effective Repository Date:2018-01-03 () 12/13/2017 E [place] Primary Insurance:[facility] E [place] [id number] [facility] ARDREYDOB: [address] [id number] [facility] [address]Dxi: Number: Repository [id number] () Date:7836-60-47XN [address] [address]RLTBWBVVY, [place] [address]KS: CHECK WEBSITE 12/13/2017 Secondary NOT GIVENUNK [place] Insurance:SELF PAY [facility] Number: Effective Repository Date:2017-12-13 12/13/2017 LUIS [place] Primary Insurance:[facility] LUIS MARQUEZ [place] [id number] [facility] ARDREYDOB: [facility] [id number], Number: Repository [place] [address]Tps: [id number] Date:3109-37-87BT [address] () [address]UPZRZOL, [place] [address]MY: CHECK WEBSITE 12/13/2017 Secondary NOT GIVENUNK [place] Insurance:SELF PAY [facility] Number: Effective Repository Date:2017-12-13 08/30/2017 LUIS [place] Primary Insurance:[facility] LUIS MARQUEZ [place] [id number] [facility] ARDREYDOB: [address], Number: Repository [place] [address]Qtp: [id number] Date:0045-61-71NK [address] (YK) [id number], [place] [address]EI: CHECK WEBSITE 08/30/2017 Secondary NOT GIVENUNK [place] Insurance:[facility]LF [facility] Number: Effective Repository Date:2017-08-16
== END ==
PROVIDERS: Family Provider Family Medicine; PCP Family Medicine; Referring Provider Family Medicine; Visit Provider Family Medicine
DX: M54.2 Cervicalgia (principal)
CPT/HCPCS: 72050

== ENCOUNTER → 2018-05-18 12:59 | Outpatient (CLI) | payer OTHER, SELFPAY ==
[2018-03-07 14:20] VITALS: BMI 34.7
--- NOTE | 2018-05-18 13:01 | BI_ITS ---
MAMMOGRAPHY - BILATERAL SCREENING REASON FOR EXAM: Female, 53 years old. Routine annual screening examination. PERTINENT HISTORY: Sister with breast cancer. Grandmother with breast cancer. Remote right excisional breast biopsy. TECHNIQUE: Digital bilateral breast janey (3D mammographic acquisition) in the CC and MLO projections. 2-D mediolateral oblique (MLO) and craniocaudad (CC) views of both breasts were obtained. CAD: Full Field Digital Mammography with Computer Added Detection was performed. COMPARISON: Comparison is made with prior study dated March 24, 2017 and March 20, 2016. FINDINGS: Breast Composition: The breasts are almost entirely fatty. There are no dominant masses or suspicious calcifications. Stable small bilateral axillary lymph nodes. No other significant abnormalities are identified. There has been no significant change since the prior study. BI/SCREEN MAMM (CAD) W/JANEY BILAT IMPRESSION: Stable bilateral screening mammogram. Yearly follow-up mammogram recommended. (A) ASSESSMENT CATEGORY: BIRADS Category 2: Benign. A letter regarding these results will be sent to the patient by the facility within 30 days. Approximately 10% of breast cancers are not detected by mammography. A normal mammogram should not delay biopsy of a clinically suspicious abnormality. [id number] Electronically Signed: Severiano Langford MD at 14:13 EST , Service support ,
== END ==
PROVIDERS: Family Provider Family Medicine; PCP Family Medicine; Referring Provider Nurse Practitioner Women's Health; Visit Provider Nurse Practitioner Women's Health
DX: Z12.31 Encounter for screening mammogram for malignant neoplasm of breast (principal)
CPT/HCPCS: 77063; 77067

== ENCOUNTER → 2018-05-31 16:36 | Outpatient (CLI) | payer OTHER, SELFPAY ==
[2018-03-07 14:20] VITALS: BMI 34.7
--- NOTE | 2018-05-31 16:47 | MRI_ITS ---
STUDY: MRI CERVICAL SPINE WITHOUT CONTRAST REASON FOR EXAM: Female, 53 years old. Neck pain, left shoulder and arm pain. TECHNIQUE: Standardized fat and water weighted pulse sequences were obtained in the sagittal and axial planes. COMPARISON: X-ray 05/09/2018. FINDINGS: Normal foramen magnum and brainstem-cervical cord junction. Normal craniovertebral junction. Normal anterior atlantoaxial articulation. Normal odontoid process. Normal cervical lordosis. Normal vertebral bodies and posterior osseous elements. C2-3: Normal endplates. Normal disc height, signal and morphology. Normal central canal and intervertebral neural foramina. C3-4: Normal endplates. There is 2 mm anterolisthesis. Normal disc height, signal and morphology. Normal central canal. There is severe left foraminal stenosis due to uncinate hypertrophy. C4-5: Normal endplates. Normal disc height, signal and morphology. There is a mild, noncompressive spondylotic bar. No canal stenosis. There is mild foraminal encroachment on the right and severe stenosis on the left due to uncinate hypertrophy. C5-6: Normal endplates. Normal disc height, signal and morphology. Normal central canal and intervertebral neural foramina. C6-7: Normal endplates. Normal disc height, signal and morphology. Normal central canal and intervertebral neural foramina. C7-T1: Normal endplates. Normal disc height, signal and morphology. Normal central canal and intervertebral neural foramina. Normal cervical cord. Normal visualized soft tissue structures. MRI/Spine Cervical (Routine) IMPRESSION: 1. 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 2. Minimal anterolisthesis at C3-4. Electronically Signed: Nicole Morrow MD at 20:51 EST Tel , Service support ,
== END ==
PROVIDERS: Family Provider Family Medicine; PCP Family Medicine; Referring Provider Family Medicine; Visit Provider Family Medicine
DX: M54.2 Cervicalgia (principal)
CPT/HCPCS: 72141

== ENCOUNTER 2018-07-27 17:00 | Outpatient (RCR) | payer OTHER, SELFPAY ==
[2018-03-07 14:20] VITALS: BMI 34.7
--- NOTE | 2018-07-27 17:33 | HP.PTDCSUM ---
HP - PT D/C Summary It has been my pleasure to treat LUIS DAVIS under orders from JASPER PECK, for the diagnosis of neck pain with L UE radiculopathy for a total of 8 visit(s). Discharge Date: Please see the following information for a summary of their discharge status. - Subjective Subjective: No pain at this time - Pain neck Pain Intensity (Out of 10): 0 Left UE Pain Intensity (Out of 10): 0 - Overall Improvement % Improvement: 75 - Objective Objective/Function: 0/10 neck pain and no difficulty with sleep at this time. L UE radiculopathy has decreased 50%. All c/s ROM is WNL at this time. I with HEP. Rx goals achieved. - Goals Goal 1:: Decrease neck pain x 50% to aid with sleep Goal Progress: Goal Met Goal 2:: Increase c/s ROM to WNL to aid with work duties Goal Progress: Goal Met Goal 3:: Decrease L UE frequency and intensity x 50% to aid with IADL's Goal Progress: Goal Met Goal 4:: I with HEP Goal Progress: Goal Met - Plan Plan: Discharge - D/C Information If there are questions or concerns regarding this patient's physical therapy, please feel free to call me at [phone]. Thank you for the referral of this patient. Sincerely, Rohit Joel, PT, ATC
--- NOTE | 2018-07-27 17:34 | HP.PTEVAL ---
Patient's Visit Information LUIS DAVIS is a 53 year old F referred to Physical Therapy by JASPER PECK with a diagnosis of neck pain with L UE radiculopathy. Date of Evaluation: 06/29/18 Physical Therapist: Rohit Joel, PT, ATC - Visit Plan Frequency: 2x /Week Duration: 4 Weeks Plan: Discharge - Subjective Findings: Pt reports she has had chronic neck pain for several years. Pt reports she began to experience L UE tingling and numbness for the past 4-6 weeks. Pt reports she has a Hx of carpal tunnel bilaterally 6-8 years ago which she had surgery for. Pt notes she has had an xray and MRI which revealed spinal stenosis in C/S. Pt is in pt access, and notes her L UE sx's get worse when she types on her computer. Pt also notes the pain will wake her up at night. Pt notes she also gets pain when she is on the phone a lot at work. Nothing really helps to take away her pain. Pt reports no pain in her neck at this time, but notes the tingling in L UE extends to her hand. - Pain neck Pain Intensity (Out of 10): 0 Left UE Pain Intensity (Out of 10): 0 Comment: dull ache - Objective Neuro: B UE sensation is WNL to light touch. B bicepital reflex= 1/3. MMT: B UE 5/5 throughout. ROM: Pt is most limited with retraction, L rot, and L SB. All other motions are WNL. repeated movements: RPIS 10x3 had NE. RRIS provoked pain in LE to elbow region. Special testing: Positive compression test. - Goals Goal 1:: Decrease neck pain x 50% to aid with sleep Goal Time Frame: 2-4 Weeks Goal 2:: Increase c/s ROM to WNL to aid with work duties Goal Time Frame: 2-4 Weeks Goal 3:: Decrease L UE frequency and intensity x 50% to aid with IADL's Goal Time Frame: 2-4 Weeks Goal 4:: I with HEP Goal Time Frame: 2-4 Weeks - Rehabilitation Potential Physical Therapy Diagnosis: Pt has neck pain, L UE radiculopoathy, and limited neck ROM secondary to deg changes in the c/s Rehabilitation Potential: Good - Anticipated Interventions Patient/Client Instruction: Educate patient on: Condition, Plan of Care For the Purpose of:: To improve self management Therapeutic Exercise to Include: Strength training, Body mechanics, Postural training, Flexibilty training, Scapular Strength/Stabilization For the Purpose of:: To decrease pain, To increase ROM, To improve muscle performance and motor function Manual Therapy Techniques to Include: Soft tissue mobilization For the Purpose of:: To decrease pain Intermittent cervical traction: Yes For the Purpose of:: To decrease pain Thank you for the opportunity to evaluate your patient. For Medicare and Medicare HMO plans, please review the plan of care and approve it. It will need to be FAXED BACK to us at [phone] for Medicare purposes. For Medicare only, by signing this I certify the plan of care. Please let me know if there are questions or concerns regarding this plan of care. Physician Signature: Date:
== END 2018-07-27 19:00 | disposition home or self-care (01) ==
LOC: PT 17:00
PROVIDERS: Family Provider Family Medicine; PCP Family Medicine
DX: M54.12 Radiculopathy, cervical region (principal); M48.02 Spinal stenosis, cervical region
CPT/HCPCS: 97012; 97110; 97161; 97530

== ENCOUNTER → 2019-01-23 16:57 | Outpatient (CLI) | payer OTHER, SELFPAY ==
[2019-01-03 14:23] VITALS: BMI 34.7
--- NOTE | 2019-01-23 17:30 | MRI_ITS ---
STUDY: MRI RIGHT KNEE REASON FOR EXAM: Female, 54 years old. Knee pain TECHNIQUE: Standardized fat and water weighted pulse sequences were obtained in all 3 orthogonal planes. COMPARISON: None. FINDINGS: There is linear abnormal signal within the posterior horn medial meniscus which does not extend to the articular surface. The anterior horn is intact. There are articular and osteochondral defects with subchondral geodes largest measuring 6 mm within the posterior medial tibial cortex. There are medial compartmental osteophytes. There is a small subcentimeter fluid collection adjacent to the posterior horn medial meniscus. There are small articular and osteochondral defects posterior medial femoral condyle. There are small subcentimeter fluid collection noted posterior inferior to the proximal tibia. Normal medial collateral ligamentous complex (MCL). Normal distal semimembranosus, gracilis and semitendinosus tendons. Normal lateral meniscus. There are multiple subcentimeter subchondral geodes with small articular and osteochondral defects within the lateral tibial plateau near the insertion of the anterior cruciate ligament. Small subcentimeter parameniscal cyst adjacent to the anterior horn. Small less than 5 mm cysts posterior to the distal lateral femur. There is minimal lateral compartmental osteophytes. Normal proximal tibiofibular articulation. Normal lateral collateral (fibular) ligament. Normal popliteus tendon. Normal biceps femoris tendon. Normal anterior cruciate ligament (ACL). Normal posterior cruciate ligament (PCL). There is a small subcentimeter fluid collection posterior medial to the knee. There are large articular defects and small less than 5 mm multiple subchondral geodes within the patella most significantly involving the lateral facet. There are patellar osteophytes. There is a small suprapatellar effusion. There is mild prepatellar edema. The retinacula are intact. Small anterior opposed femoral condyle articular and osteochondral defects. Normal quadriceps tendon. Normal patellar tendon. There is mild edema within the Hoffa's fat pad There are small 3 mm for bony densities noted posterior and medial to the knee There are no fractures. MRI/Lower Ext Joint Only (Routine) IMPRESSION: Mild to moderate osteoarthrosis within the medial compartment of the knee with osteophyte formation, significant degeneration posterior horn medial meniscus Multiple articular and small osteochondral defects with small subchondral geodes medial, lateral tibial plateaus and anterior posterior medial femoral condyles as above Small parameniscal cysts adjacent to the medial and lateral menisci Mild osteoarthrosis lateral compartment Grade IV chondromalacia patella with significant articular and osteochondral defects within the patella and opposed femoral condyles Small suprapatellar effusion Mild prepatellar edema Small bony densities posterior medial to the knee most likely joint mice versus synovial osteochondromatosis subcentimeter parameniscal cyst versus ganglion cyst posterior proximal medial tibia Electronically Signed: Oscar Platt, at 7:48 EDT Tel , Service support ,
== END ==
PROVIDERS: Family Provider Family Medicine; PCP Family Medicine; Referring Provider Orthopaedic Surgery; Visit Provider Orthopaedic Surgery
DX: M17.11 Unilateral primary osteoarthritis, right knee (principal)
CPT/HCPCS: 73721

== ENCOUNTER 2019-02-12 12:20 | Day surgery (SDC) | payer OTHER, SELFPAY ==
[2019-01-03 14:23] VITALS: BMI 34.7
[2019-02-12 12:50] VITALS: BP 125/57; PULSE 71; RESP 16; TEMP 36.6; O2SAT 97; BMI 35.8
[2019-02-12] MEDS: Lactated Ringers 1,000 ML 100 ML IV (13:07)
[2019-02-12] MEDS: Cefazolin 2 GM in 0.9% Normal Saline 100 ML IV (14:23)
[2019-02-12] MEDS: Epinephrine (1 mg/ml) 1 MG/ML VIAL (15:04)
[2019-02-12] MEDS: Bupivacaine 0.25%-Epi/Pf 1:200,000 OPERA.SITE (15:05)
[2019-02-12 15:18] VITALS: BP 125/57; BP 130/83; PULSE 101; RESP 16; TEMP 36.2; O2SAT 97
--- NOTE | 2019-02-12 15:26 | OP.PCM_ITS ---
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, Grade 3 chondromalacia medial and lateral femoral condyles with medial osteophyte Surgery/Procedure Performed:: Arthroscopic partial lateral meniscectomy, chondroplasty patellofemoral joint, medial and lateral femoral condyles, exostectomy medial femoral condyle Description of Surgical Findings:: Primary Surgeon/Physician: Kneneth Murillo automotive parts coordinator: automotive parts coordinator: Pre-Operative Diagnosis: Internal derangement right knee Post-Operative Diagnosis: Lateral meniscal tear, Grade 3 and 4 chondromalacia PFJ, Grade 3 chondromalacia medial and lateral femoral condyles, osteophyte med ial aspect of medial femoral condyle Surgery/Procedure Performed: Arthroscopic partial lateral meniscectomy, chondroplasty PFJ, MFC and LFC, exostectomy MFC Estimated Blood Loss: 5 cc Specimen's Removed: none Type of Anesthesia: general ASA Class: 2 Indications: [ ] Patient has failed conservative measures and at this point has elected to undergo the above procedure. Procedure Description: The patient was greeted in the preoperative area. The [right ] knee was marked with surgical marker. Preoperative antibiotics were administered. The patient was then taken to the operating suite and placed in a supine position on operating room table. After adequate anesthesia was obtained and airway was secured a well-padded tourniquet was placed on patient's affected extremity. Leg was then prepped and draped in usual sterile fashion. Surgical timeout was performed and confirmed with all present and surgery was commenced. Standard anteromedial anterolateral portals were made and a 30? arthroscope was then inserted into the knee. [ ]. The patellofemoral joint (PFJ) revealed grade 3 medial and grade 4 lateral chondromalacia. The medial meniscus was intact. There was focal grade 3 chondromalacia of the medial femoral condyle (MFC) and an osteophyte protruding from the medial aspect of the MFC which was impinging on the medial capsule. The ACL and PCL were probed and found to be intact. There was a macerated tear of the inner 1/3 and posterior horn of the lateral meniscus with diffuse grade 3 chondromalacia of the lateral femoral condyle (LFC) associated with this. Straight basket punches were used to perform a partial lateral meniscectomy. The meniscal fragments were removed with a shaver and the shaver was used to p erform a chondroplasty on the LFC to remove any delaminated cartilage. The shaver was then used to perform a chondroplasty on the MFC and the PFJ. Again, any delaminating cartilage was smoothed down with the shaver. A bur was subsequently used to perform an exostectomy on the osteophyte protruding from the MFC. This relieved the impingement upon the medial capsule. At this point all instruments were removed. Arthroscopic portals were closed in a standard fashion. 30 cc of 0.5% Marcaine was then injected into the knee. Well-padded nonadherent dressing was applied and secured with an Bryan wrap. Tourniquet was deflated and patient was taken to the recovery room in stable condition. Type of Anesthesia:: General Anesthesiologist: Maurice Rodgers Estimated Blood Loss (mL): 5cc
[2019-02-12 15:30] VITALS: BP 125/57; BP 136/74; PULSE 92; RESP 16; O2SAT 100
[2019-02-12 15:45] VITALS: BP 125/57; BP 128/7; PULSE 81; RESP 16; TEMP 36.1; O2SAT 98
[2019-02-12 16:45] VITALS: BP 125/57; BP 134/74; PULSE 88; RESP 16; TEMP 36.2; O2SAT 98
== END 2019-02-12 16:50 | disposition home or self-care (01) ==
LOC: SDC 12:20 → AC 12:22
PROVIDERS: Family Provider Family Medicine; PCP Family Medicine; Referring Provider Orthopaedic Surgery; Visit Provider Orthopaedic Surgery
PROC: (CPT 29870; principal; 2019-02-12 13:55)
DX: S83.281A Other tear of lateral meniscus, current injury, right knee, initial encounter (principal); M17.11 Unilateral primary osteoarthritis, right knee; E66.8 Other obesity; Z68.36 Body mass index [BMI] 36.0-36.9, adult; M94.261 Chondromalacia, right knee; Z87.891 Personal history of nicotine dependence
CPT/HCPCS: 29881; J7120; J2405

== ENCOUNTER 2019-03-22 17:00 | Outpatient (RCR) | payer OTHER, SELFPAY ==
--- NOTE | 2019-02-20 14:33 | HP.PTEVAL ---
Patient's Visit Information LUIS DAVIS is a 54 year old F referred to Physical Therapy by Kenneth Murillo DO with a diagnosis of R knee arthroscopy. Date of Evaluation: 02/20/19 Physical Therapist: Rohit Joel PT, ATC - Visit Plan Frequency: 2-3x /Week Duration: 4-6 Weeks Plan: R knee stretching and strengthening, balance and proprio, core strengthening, bike,a nd HEP - Subjective Findings: DOS: 02/12/19. Pt reports she had a R medial meniscus repair and decompression performed. Pt reports her femur and patella are bone to bone and she will need a TKA in the near future. Pt reports she is glad she had the surgery performed at this time. Pt reports she was in a lot of pain prior to surgery, and is still in pain now, bur the pain is much different than prior to the surgery. No tingling or numbness in R LE. Occasional sleep difficulty secondary to pain. Pt negotiates stairs one step at a time. Pt is off work for three weeks. 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 2/10 pain at rest, 5/10 at worst (prolonged walking and floor transfers) - Pain R knee Pain Intensity (Out of 10): 2 Pain Intensity Range: 5 - Objective Neuro: B LE sensation is WNL to light touch. B achilles reflex 2/3. Observation: Minor swelling noted this date. Incisions healing well. No signs of infections. ROM: L knee 0-145 degrees. R knee 0-105 degrees. MMT: L knee 5/5 throughout. R knee 3/5. Girth at joint line: R knee 42 cm, L knee 39 cm. Gait: Pt ambulated greater than 1000 feet without difficulty - Goals Goal 1:: Increase R knee strength x 1 grade to aid with stair negotiation Goal Time Frame: 4-6 Weeks Goal 2:: Increase R knee ROM x 10 degrees to aid with restoring a more normalized gait pattern Goal Time Frame: 4-6 Weeks Goal 3:: Decrease R knee pain x 50% to aid with sleep Goal Time Frame: 4-6 Weeks Goal 4:: I with HEP Goal Time Frame: 4-6 Weeks - Rehabilitation Potential Physical Therapy Diagnosis: R knee pain, weakness, and limited ROM secondary to R knee arthroscopy Rehabilitation Potential: Good - Anticipated Interventions Patient/Client Instruction: Educate patient on: Condition, Plan of Care For the Purpose of:: To improve self management Therapeutic Exercise to Include: Strength training, Endurance training, Balance training, Active ROM, Dynamic Lumbar Stabilization For the Purpose of:: To decrease pain, To increase ROM, To improve muscle performance and motor function Cryotherapy (ice pack, ice massage): Yes For the Purpose of:: To decrease pain Thank you for the opportunity to evaluate your patient. For Medicare and Medicare HMO plans, please review the plan of care and approve it. It will need to be FAXED BACK to us at [phone] for Medicare purposes. For Medicare only, by signing this I certify the plan of care. Please let me know if there are questions or concerns regarding this plan of care. Physician Signature: Date:
--- NOTE | 2019-03-22 17:43 | HP.PTDCSUM ---
HP - PT D/C Summary It has been my pleasure to treat LUIS DAVIS under orders from Kenneth Murillo DO, for the diagnosis of R knee arthroscopy for a total of 7 visit(s). Discharge Date: Please see the following information for a summary of their discharge status. - Subjective Subjective: No pain this date - Pain R knee Pain Intensity (Out of 10): 0 - Overall Improvement % Improvement: 85 - Objective Objective/Function: R knee pain 0/10. R knee ROM: 0-150. R knee MMT: 5/5 throughout. I with HEP. Rx goals achieved - Goals Goal 1:: Increase R knee strength x 1 grade to aid with stair negotiation Goal Progress: Goal Met Goal 2:: Increase R knee ROM x 10 degrees to aid with restoring a more normalized gait pattern Goal Progress: Goal Met Goal 3:: Decrease R knee pain x 50% to aid with sleep Goal Progress: Goal Met Goal 4:: I with HEP Goal Progress: Goal Met - Plan Plan: Discharge - D/C Information If there are questions or concerns regarding this patient's physical therapy, please feel free to call me at [phone]. Thank you for the referral of this patient. Sincerely, Rohit Joel, PT, ATC
== END 2019-03-22 19:00 | disposition home or self-care (01) ==
LOC: PT 17:00
PROVIDERS: Family Provider Family Medicine; PCP Family Medicine; Visit Provider Orthopaedic Surgery
DX: S83.281D Other tear of lateral meniscus, current injury, right knee, subsequent encounter (principal)
CPT/HCPCS: 97110; 97161; 97530

== ENCOUNTER → 2019-05-18 12:04 | Outpatient (CLI) | payer OTHER, SELFPAY ==
[2019-04-27 11:38] VITALS: BMI 35.8
--- NOTE | 2019-05-18 12:11 | BI_ITS ---
MAMMOGRAPHY - BILATERAL SCREENING REASON FOR EXAM: Female, 54 years old. Routine annual screening examination. PERTINENT HISTORY: Sister with breast cancer. Grandmother with breast cancer. Prior right excisional breast biopsy. TECHNIQUE: Digital bilateral breast janey (3D mammographic acquisition) in the CC and MLO projections. 2-D mediolateral oblique (MLO) and craniocaudad (CC) views of both breasts were obtained. CAD: Full Field Digital Mammography with Computer Added Detection was performed. COMPARISON: Comparison is made with prior study dated May 18, 2018 and March 24, 2007. FINDINGS: Breast Composition: The breasts are almost entirely fatty. There are no dominant masses or suspicious calcifications. Stable small benign-appearing bilateral axillary lymph nodes. No other significant abnormalities are identified. There has been no significant change since the prior study. BI/SCREEN MAMM (CAD) W/JANEY BILAT IMPRESSION: Stable bilateral screening mammogram. Yearly follow-up mammogram recommended. (A) ASSESSMENT CATEGORY: BIRADS Category 2: Benign. A letter regarding these results will be sent to the patient by the facility within 30 days. Approximately 10% of breast cancers are not detected by mammography. A normal mammogram should not delay biopsy of a clinically suspicious abnormality. [id number] Electronically Signed: Severiano Langford, at 13:31 EST , Service support ,
== END ==
PROVIDERS: Family Provider Family Medicine; PCP Family Medicine; Referring Provider Nurse Practitioner Women's Health; Visit Provider Nurse Practitioner Women's Health
DX: Z12.31 Encounter for screening mammogram for malignant neoplasm of breast (principal); Z80.3 Family history of malignant neoplasm of breast
CPT/HCPCS: 77063; 77067

== ENCOUNTER → 2019-07-10 11:59 | Outpatient (CLI) | payer OTHER, SELFPAY ==
[2019-07-03 14:14] VITALS: BMI 35.8
--- NOTE | 2019-07-10 12:00 | US_ITS ---
STUDY: ULTRASOUND OF THE FEMALE PELVIS - COMPLETE REASON FOR EXAM: Female, 54 years old. AUB LMP: The patient is postmenopausal. TECHNIQUE: Transabdominal and Transvaginal TECHNICAL QUALITY: Adequate. COMPARISON: Comparison is made with prior study April 10, 2018. FINDINGS: The uterus is anteverted and is tilted to the left side of the pelvis. The uterus measures 9.6 cm x 5 cm x 4.6 cm. There is a Nabothian cyst of the cervix. The endometrium measures 4.4 mm in thickness, and is hyperechoic. There is no demonstrated endometrial mass. The uterus is of heterogeneous echotexture. 2 focal fibroids are seen. The larger measures 2.4 cm x 2.5 cm by 2.2 cm. I.U.D. - The patient does not have an I.U.D. The right ovary is visualized. The right ovary measures 2.8 cm x 1.5 cm x 1.2 cm. There is no right ovarian cyst or ovarian mass. There is no visualized right adnexal mass or complex lesion. There is normal arterial and normal venous vascularity. The left ovary is non-visualized. There is no fluid in the cul-de-sac. The pre void volume of the bladder was 651 ml. Polycystic ovary disease: No. US/Transvaginal Non- IMPRESSION: Fibroid uterus with mildly thickened endometrium. Electronically Signed: Severiano Langford, at 13:28 EDT , Service support ,
--- NOTE | 2019-07-10 12:00 | US_ITS ---
STUDY: ULTRASOUND OF THE FEMALE PELVIS - COMPLETE REASON FOR EXAM: Female, 54 years old. AUB LMP: The patient is postmenopausal. TECHNIQUE: Transabdominal and Transvaginal TECHNICAL QUALITY: Adequate. COMPARISON: Comparison is made with prior study April 10, 2018. FINDINGS: The uterus is anteverted and is tilted to the left side of the pelvis. The uterus measures 9.6 cm x 5 cm x 4.6 cm. There is a Nabothian cyst of the cervix. The endometrium measures 4.4 mm in thickness, and is hyperechoic. There is no demonstrated endometrial mass. The uterus is of heterogeneous echotexture. 2 focal fibroids are seen. The larger measures 2.4 cm x 2.5 cm by 2.2 cm. I.U.D. - The patient does not have an I.U.D. The right ovary is visualized. The right ovary measures 2.8 cm x 1.5 cm x 1.2 cm. There is no right ovarian cyst or ovarian mass. There is no visualized right adnexal mass or complex lesion. There is normal arterial and normal venous vascularity. The left ovary is non-visualized. There is no fluid in the cul-de-sac. The pre void volume of the bladder was 651 ml. Polycystic ovary disease: No. US/Pelvic (Non ) IMPRESSION: Fibroid uterus with mildly thickened endometrium. Electronically Signed: Severiano Langford, at 13:28 EDT , Service support ,
== END ==
PROVIDERS: PCP Family Medicine; Referring Provider Nurse Practitioner Women's Health; Visit Provider Nurse Practitioner Women's Health
DX: N93.9 Abnormal uterine and vaginal bleeding, unspecified (principal)
CPT/HCPCS: 76830; 76856

== ENCOUNTER → 2019-07-11 14:49 | Outpatient (CLI) | payer OTHER, SELFPAY ==
--- NOTE | 2019-07-11 | EMB_PTH ---
PATIENT: LUIS DAVIS LOC: [facility] U#:[id number] AGE/SX: 60/F ROOM: RE07/11/[address]: TERRY Gurrola : 1965 BED: DIS: SPEC #: [id number] RECD: 07/11/19 15:03 STATUS: DAVID [facility] #: [id number] LUIS: 07/11/19 00:[address]: Teressa Joe NP DEPT: SURGICAL PATHOLOGY RECD BY: Donnie Vidal ENTERED: 07/12/19 08:00 SP TYPE: ENDOM BX/C JEANNINE DR: Dr. Jude Greenwood MD Tissues: Endometrium, NOS Procedures: Surgery Specimen Level IV HEADER OPERATION: Endometrial biopsy PRE-OP DIAGNOSIS: Abnormal uterine bleeding; patient is currently taking Aygestin TISSUE SUBMITTED: Endometrial lining MICROSCOPIC DIAGNOSIS Endometrium, biopsy: Transition endometrium. No evidence of hyperplasia. AM:jeri 3/27/20 MICROSCOPIC DESCRIPTION Slides are reviewed. GROSS DESCRIPTION Received is one container labeled with the patient's name and not further designated. The specimen consists of multiple irregular and elongated fragments of pink-roper soft tissue that in aggregate measure 2 x 1 x 0.1 cm. The specimen is totally submitted in one cassette. / AM:jeri 07/12/19 TC:5 CPT: 77785
[2019-07-11 13:17] VITALS: BMI 34.9
== END ==
PROVIDERS: PCP Family Medicine; Referring Provider Nurse Practitioner Women's Health; Visit Provider Nurse Practitioner Women's Health
DX: N95.0 Postmenopausal bleeding (principal)
CPT/HCPCS: 88305

== ENCOUNTER 2019-09-04 08:48 | Day surgery (SDC) | payer OTHER, SELFPAY ==
[2019-07-16 08:00] VITALS: BMI 35.8
[2019-08-28 14:21] VITALS: BMI 35.8
--- NOTE | 2019-08-30 15:29 | EKG12_ITS ---
Test Reason : Blood Pressure : / mmHG Vent. Rate : 088 BPM Atrial Rate : 088 BPM P-R Int : 154 ms QRS Dur : 076 ms QT Int : 356 ms P-R-T Axes : 044 -05 035 degrees QTc Int : 430 ms Normal sinus rhythm Normal ECG Confirmed by LASHONDA CUNNINGHAM, ESTELLE ([id number]), editor & co founder LEAH RIVERA ([id number]) on 09/03/2019 1:12:05 PM Referred By: Maira Gillespie Confirmed By:LAUREEN GALLEGO MD
[2019-08-30 16:01] LABS: Hematocrit 43.2 % (37-47); Hemoglobin 14.2 g/dL (12.0-15.0); Mean Corp Hgb Conc 32.9 g/dL (32-36); Mean Corpuscular Hgb 29.5 pg (27.0-32.0); Mean Corpuscular Volume 89.6 fL (81-99); Mean Platelet Vol. 9.1 fl (6.2-12.0); Platelet Count 368 K/mm3 (150-450); RBC Distribution Width CV 13.4 % (11.6-14.6); RBC Distribution Width SD 43.7 fl (35.1-43.9); Red Blood Count 4.82 M/mm3 (4.2-5.4); White Blood Count 8.9 K/mm3 (4.4-11.0)
[2019-08-30 16:20] LABS: Anion Gap 6 (5-15); BUN 21 mg/dL (7-18); BUN/Creat Ratio 19.4 RATIO (10-20); Calcium,Total 9.1 mg/dL (8.5-10.1); Chloride 107 mmol/L (98-107); Creatinine, Serum 1.08 mg/dL (0.55-1.02); EST Glomerular Filtration Rate 56 mL/min (>60); Est Glom Filt Rate - Afr Amer 67 mL/min (>60); Glucose 89 mg/dL (74-106); Potassium 4.1 mmol/L (3.5-5.1); Sodium Level 138 mmol/L (136-145)
[2019-09-04] VITALS (7 sets, daily range): BP systolic 123–131; BP diastolic 61–82; PULSE 65–74; RESP 14–16; TEMP 37.3–37.5; O2SAT 93–98; BMI 35.6
--- NOTE | 2019-09-04 09:18 | PCM.HP.STD ---
Problem List (1) Postmenopausal bleeding Status: Acute Comment: - melody. Normal EMB, US with small fibroid. Responded to aygestin but with recurrence of bleeding and also irritable with Rx. Start provera and schedule hysteroscopy, D&C, symphion. History of Present Illness Date of Admission: 09/04/19 LUIS DAVIS, is a 54 F who presents to the office today for preop visit for d and c hysteroscopy symphion resection. this is part of the global package. she has had postmenopaual bleeding that was teated with aygestin twice and persistent, and had an ultrasound that showed several fibroids, possible submucosal Past Medical History Medical History: Medical History (Last Reviewed 07/11/19 @ 13:[address]) Anxiety and depression F41.9, F32.9 Borderline high cholesterol E78.9 Breast lump in female N63.0 Carpal tunnel syndrome G56.00 Frequent headaches R51 HISTORY OF BUNION REMOVAL Hay fever J30.1 Hemorrhoids K64.9 History of lipoma Z86.018 Knee pain M25.569 NECK/BACK PAIN Osteoarthritis M19.90 KNEE Radiculopathy M54.10 CERVICAL Shoulder pain M25.519 Allergies chlorpheniramine [From Tylenol Sinus Congestion Pain] Allergy (Verified 08/28/19 13:32) Unknown guaifenesin [From Tylenol Sinus Congestion Pain] Allergy (Verified 08/28/19 13:32) Unknown phenylephrine HCl [From Tylenol Sinus Congestion Pain] Allergy (Verified 08/28/19 13:32) Unknown Home Medications: Ambulatory Orders Medication Instructions Recorded Paroxetine [Paxil] 5 mg PO DAILY 10/28/14 aspirin 81 mg tablet,delayed 81 mg PO DAILY 01/03/19 release Surgical History: Surgical History (Last Reviewed 07/11/19 @ 13:[address]) History of bunionectomy Z98.890 History of carpal tunnel surgery Z98.890 History of cyst of breast Z87.2 CYST REMOVAL FROM BREAST - BENIGN (1999) History of hernia repair Z98.890, Z87.19 Smoking Status: Never smoker Review of Systems Constitutional: Denies: Fever, Malaise Eyes: Denies: Blurred vision, Vision Change HEENT: Denies: Head Aches, Visual Changes Cardiovascular: Denies: Chest Pain, Palpitations Respiratory: Denies: Cough, Shortness of Breath, Wheezing Gastrointestinal: Denies: Abdominal Pain, Diarrhea, Nausea, Vomiting Genitourinary: Denies: Dysuria, Hematuria Musculoskeletal: Denies: Joint Pain, Muscle pain Skin: Denies: Lesions, Rash Neurological: Denies: Blurred vision, Focal weakness, Headaches Psychiatric: Denies: Anxiety, Depression Endocrine: Denies: Heat/ Cold Intolerance Hematologic/ Lymphatic: Denies: Easy Bruising, Easy Bleeding VTE Information - Inpt Only VTE Present on Admission: No VTE Mechan Device Prophylaxis: SCD's - Physical Exam Vitals/I&O's: Body Mass Index (BMI) 35.8 General: Alert, Oriented x3 HEENT: Atraumatic, Normocephalic Neck: Thyroid Normal Size and Texture Lungs: Clear to auscultation Cardiovascular: Regular rate Abdomen: Soft, Non Tender, Non-Distended Extremities: No edema Microbiology Past 72 Hours 09/03/19 05:14 Mucosa - Nasopharyngeal Coronavirus COVID-19 PCR - Final Laboratory Results 09/03/19 08:14: COVID-19 (JULIANNE) Cancelled 09/04/19 09:00: Urine Test Pending Assessment/Plan All Active Problems (Last Reviewed 07/11/19 @ 13:[address]) Postmenopausal bleeding (Acute) 54 yo with PMB and abnormal ultrasound with fibroids After discussing the patient's diagnosis and treatment plan options, patient wishes to proceed with surgical management. I have discussed with the patient the risks, benefits, and alternatives of the procedure which include but are not limited to risks of anesthesia, bleeding, infection, possible damage to bowel, bladder, or surrounding vasculature which could lead to additional surgery to evaluate any complications. Patient agrees to procedure and wishes to proceed. ACOG/uptodate references given for additional information regarding procedure. plan d and c hysterosocpy hysteroscopic resection of fibroids
[2019-09-04 09:26] LABS: Internal QC Validated? YES +Cl - CLEAR BKGD; Pregnancy, Urine Negative Negative
--- NOTE | 2019-09-04 09:31 | PCM.OPRPT ---
Problem List (1) Postmenopausal bleeding Status: Acute Comment: - melody. Normal EMB, US with small fibroid. Responded to aygestin but with recurrence of bleeding and also irritable with Rx. Start provera and schedule hysteroscopy, D&C, symphion. Report of Operation Date of Procedure: 09/04/19 Pre-Operative Diagnosis: postmenopausal bleeding Post-Operative Diagnosis: same Surgery/Procedure Performed:: d and c hysteroscopy symphion hysteroscopic resection Description of Surgical Findings:: atrophic lining Type of Anesthesia:: Local MAC Special Medications: none Specimen's removed: emb Drains: none Fluids Replaced: crystalloid Description of Procedure: Patient was prepped and draped in a normal sterile fashion under MAC anesthesia. A weighted speculum was placed in the vagina and the anterior lip of the cervix was grasped with a single-tooth tenaculum. A paracervical block was placed with 1% lidocaine. Cervix was progressively dilated to allow passage of a 5 mm hysteroscope. The lining was fully visualized and noted to have a thin atrophic lining. Uterine sounded to 8 cm. Curettage was performed and small amount of tissue obtained, sent to pathology. All instruments were removed from the vagina and excellent hemostasis was noted. Patient was awoken and taken to recovery in stable condition. Grafts/Implants Used: none - Complications none - Admit VTE Documentation VTE Present on Admission: No VTE Mechan Device Prophylaxis: SCD's Multi Select Codes - Urinary/Genital Urinary/Genital CPT Codes: 67714 Hysteroscopy,EMC, Polypectomy
[2019-09-04] MEDS: Lactated Ringers 1,000 ML 100 ML IV (09:32)
--- NOTE | 2019-09-04 09:33 | DCINST_ITS ---
Discharge Diet: No Restrictions Discharge Activity: Return to Normal Activity, May Shower, May Take a Tub Bath Allergies/Adverse Reactions: Allergies chlorpheniramine [From Tylenol Sinus Congestion Pain] Allergy (Verified 08/28/19 13:32) Unknown guaifenesin [From Tylenol Sinus Congestion Pain] Allergy (Verified 08/28/19 13:32) Unknown phenylephrine HCl [From Tylenol Sinus Congestion Pain] Allergy (Verified 08/28/19 13:32) Unknown Medications to take at Discharge Paroxetine [Paxil] 5 mg PO DAILY 10/28/14 aspirin 81 mg tablet,delayed release 81 mg PO DAILY 01/03/19 Orders to be completed after discharge: 12 Lead EKG [[facility]] Time Frame: 09/04/19, Facility: [facility], Location: Cardiovascular Services Primary Care Physician: Jude Greenwood MD [Primary Care Provider] - Test Results: Test results from this visit will be discussed in further detail at your follow- up appointment, if applicable. Please Follow Up With: Maira Gillespie MD - [phone]
--- NOTE | 2019-09-04 10:40 | EMB_PTH ---
PATIENT: LUIS DAVIS LOC: [facility] U#:[id number] AGE/SX: 54/F ROOM: RE09/04/[address]: Dr. Maira Gillespie MD : 1965 BED: DIS: 09/04/2019 SPEC #: [id number] RECD: 09/04/19 12:29 STATUS: DAVID REIsaías #: [id number] LUIS: 09/04/19 10:[address]: Maira Gillespie DEPT: SURGICAL PATHOLOGY RECD BY: Jalen Mane ENTERED: 09/05/19 09:14 SP TYPE: ENDOM BX/C OTHR DR: Dr. Jude Greenwood MD Tissues: Endometrium, NOS Procedures: Surgery Specimen Level IV HEADER OPERATION: Hysteroscopy, dilation and curettage PRE-OP DIAGNOSIS: Postmenopausal bleeding TISSUE SUBMITTED: Endometrial curettings MICROSCOPIC DIAGNOSIS Endometrium, curettings: Weakly proliferative to inactive endometrium with focal cystic change. Detached fragments of benign squamous mucosa. Rare strips of benign superficial endocervix. AM:jeri 09/06/19 MICROSCOPIC DESCRIPTION Slides are reviewed. GROSS DESCRIPTION Received in fixative is one container labeled with the patient's name and designated endometrial curettings. The specimen consists of multiple irregular fragments of dark roper soft tissue that in aggregate measure 2.5 x 1.5 x 0.1 cm. The specimen is totally submitted in one cassette. / AM:jeri 09/05/19 TC:5 CPT: 29618
== END 2019-09-04 13:21 | disposition home or self-care (01) ==
LOC: SDC 08:50 → AC 08:50
PROVIDERS: PCP Family Medicine; Referring Provider Obstetrics & Gynecology; Visit Provider Obstetrics & Gynecology
PROC: 0UDB8ZZ Extraction of Endometrium, Via Natural or Artificial Opening Endoscopic (ICD-10-PCS; CPT 58558; principal; 2019-09-04 10:30)
DX: N95.0 Postmenopausal bleeding (principal); F41.9 Anxiety disorder, unspecified; F32.9 Major depressive disorder, single episode, unspecified; E78.00 Pure hypercholesterolemia, unspecified; M19.90 Unspecified osteoarthritis, unspecified site; Z79.82 Long term (current) use of aspirin; Z11.59 Encounter for screening for other viral diseases
CPT/HCPCS: 58558; 36415; 80048; 81025; 85027; 86850; 86900; 86901; 87635; 88305; 93005; G2023; J7120; U0002

== ENCOUNTER → 2019-12-28 08:27 | Outpatient (CLI) | payer OTHER, SELFPAY ==
[2019-11-16 09:27] VITALS: BMI 35.6
== END ==
PROVIDERS: PCP Family Medicine; Visit Provider Family Medicine
DX: R82.90 Unspecified abnormal findings in urine (principal); E78.00 Pure hypercholesterolemia, unspecified
CPT/HCPCS: 36415; 84443; 87086

== ENCOUNTER 2020-02-12 11:17 | Day surgery (SDC) | payer OTHER, SELFPAY ==
[2019-11-16 09:27] VITALS: BMI 35.6
--- NOTE | 2020-02-10 18:43 | HP.PCM_ITS ---
History and Physical Date of Admission: 02/12/20 HISTORY AND PHYSICAL ? Sandra Almendarez 1965 ? REFERRING PHYSICIAN: Jude Greenwood MD ? CHIEF COMPLAINT: New Patient (consult colonoscopy) ? HPI: The patient is a 54 year old female referred for endoscopy. Sandra notes no colon complaints. Patient denies any change in bowel habits, weight changes, blood in stools, black tarry stools or abdominal pain. Denies family history of colon issues. ? The patient notes no upper GI complaints. ? Sandra has not undergone prior endoscopy. ? PAST MEDICAL HISTORY PAST MEDICAL HISTORY Diagnosis Date ? Acid reflux ? ? Back problem ? ? Environmental allergies ? ? Hay fever ? ? Hemorrhoids ? ? Hernia of unspecified site of abdominal cavity without mention of obstruction or gangrene ? ? ? PAST SURGICAL HISTORY PAST SURGICAL HISTORY Procedure Laterality Date ? CORRECT BUNION,LAPIDUS TYPE Bilateral 2011 ? D&C, DIAG AND/OR THERAPEUTIC ? 08/2019 ? Dilation & curettage ? EXCISION TUMOR SOFT TISSUE BACK/FLANK SUBQ 3+CM Left 02/16/16 ? [id number] lipoma ? REPAIR UMBILICAL LOVE,5+Y/O,REDUC ? 05/12/11 ? with medium ventralex ? REVISE MEDIAN N/CARPAL TUNNEL SURG Bilateral 2009 ? Carpal tunnel decomp - bilateral ? STEREOTACTIC [id number] [id number] ? 01/2011 ? Right - Hard[place] - benign ? ? ? CURRENT MEDICATIONS Current Outpatient Medications Medication Sig ? paroxetine 10 mg ORAL tablet Take 10 mg by mouth once daily. ? aspirin 81 mg chewable tablet Take 81 mg by mouth once daily. ? gabapentin (NEURONTIN) 300 mg capsule Take 1 capsule by mouth daily at bedtime for 30 days. ? No current facility-administered medications for this visit. ? ? ALLERGIES: Patient has no known allergies. ? PERSONAL HISTORY: SOCIAL HISTORY Social History ? Tobacco Use ? Smoking status: Former Smoker ? ? Packs/day: 0.30 ? ? Types: Cigarettes ? ? Quit date: 04/26/1977 ? ? Years since quittin.7 ? Smokeless tobacco: Never Used Substance Use Topics ? Alcohol use: Yes ? ? Frequency: Monthly or less ? Drug use: Never ? FAMILY HISTORY: FAMILY HISTORY FAMILY HISTORY Problem Relation Age of Onset ? Alcohol/Drug Father ? ? Alcohol/Drug Paternal Grandfather ? ? Breast Cancer Sister ? ? Breast ? Hypertension Mother ? ? Stroke Father ? ? Diabetes Mother ? ? Coronary Artery Disease Father ? ? Coronary Artery Disease Paternal Grandfather ? ? ? REVIEW OF SYMPTOMS: The review of systems data was entered by the nurse and reviewed by me ? Nursing Notes: Dharmesh Seb KIRK 01/09/2020 1:45 PM Signed REVIEW OF SYSTEMS: General: The patient denies fatigue, denies weight loss, denies weight gain, denies feeling hot, and denies feelings of cold. Eyes: The patient denies glaucoma, denies eye injury/surgery, does not wear glasses or contacts. Ear/Nose/Throat: The patient NOTES allergies, NOTES hayfever, denies ear infections, and denies bloody noses. Cardiovascular: The patient denies chest pain, denies heart disease, denies high blood pressure,denies cardiac stent, denies prior heart attack, denies irregular heart beat, denies high cholesterol, denies poor circulation, denies heart failure, other cardiac issues, denies claudication, denies cold feet, denies peripheral arterial stent. Respiratory: The patient denies tuberculosis, denies pneumonia, denies frequent cough, denies pulmonary embolism, denies shortness of breath, and denies coughing up blood. Gastrointestinal: The patient denies difficulty swallowing, NOTES acid reflux, denies ulcers, denies vomiting, denies jaundice/hepatitis, denies gallbladder problems, denies black or tarry stools, NOTES hemorrhoids, denies bleeding from rectum, denies diverticulitis, denies constipation, denies diarrhea, denies loss of stool control, and NOTES hernias. Kidney/Bladder: The patient denies kidney stones, denies urine infections, and denies bloody urine. Skin: The patient denies a history of skin cancer, denies bleeding/changing moles, and denies a history of skin rash. Neurologic: The patient denies a history of epilepsy/convulsions, denies headaches, denies head/spinal injuries, and denies stroke/TIA. Psychiatric: The patient denies psychiatric medications, NOTES depression, and denies voices, denies substance abuse. Endocrine: The patient denies thyroid disorders, denies diabetes, and denies hormonal problems. Hematologic: The patient denies a history of bruising, denies bleeding, and denies anemia, denies blood clots. Infections: The patient denies a history of measles and mumps, denies rheumatic fever, and denies sexually transmitted diseases. Musculoskeletal: The patient denies back pain/injury, NOTES back problems, denies sciatica, NOTES knee/foot trouble, denies arthritis, or denies gout. ? ? When was patient's last Mammogram screening? N/A ? Last Colonoscopy: Unknown ? Dharmesh Grigsby LPN I have confirmed and edited as necessary, the PFSH and ROS obtained by others. ? ? PHYSICAL EXAMINATION: ? General: The patient is 54 year old female, well nourished, well hydrated in no acute distress. The patient is oriented to time, place, and person. ? VITALS: Blood pressure 114/71, pulse 78, temperature 37.1 ?C (98.8 ?F), height 160 cm (5' 3), weight 91.4 kg (201 lb 6.4 oz), SpO2 96 %. Body mass index is 35.68 kg/m?. ? HEENT: Normal cephalic, ataumatic, pupils are equally round, sclera are anicteric, mucous membranes are moist, oropharynx is clear. Neck has no masses, asymmetry or lymphadenopathy. ? Respiratory: Clear to auscultation and percussion. Normal respiratory excursion and pattern. ? Cardiac: Examination is regular rate and rhythm. Normal S1/S2 ? Abdominal exam: Soft, nontender, with no palpable masses. No hepatosplenomegaly. No palpable hernias. ? Extremities: no clubbing, cyanosis or edema. No adenopathy. ? LABORATORY VALUES: As Noted ? RADIOLOGIC STUDIES: As Noted ? ? IMPRESSION: encounter for screening colonoscopy ? PLAN: I have reviewed my findings with the surgeon. Will plan for lower endoscopy. We discussed the risks and benefits of the planned endoscopy. I have informed the patient that complications can occur including failure to complete the endoscopy and perforation. The patient had the opportunity to ask questions concerning the planned endoscopy. My staff has also explained the procedure to the patient in understandable terms and has given the patient printed material concerning the procedure. The patient freely consents to surgery. ? The patient was offered a surgery/procedure. I have counseled the patient regarding the risk of exposure to and/or potential harm posed by the COVID-19 virus with having a surgery/procedure at this time versus the risk of? delaying the surgery/procedure. It is not possible to know either the risk of delaying the surgery or procedure or chance of getting an infection with perfect accuracy, but a joint decision was made between the patient and myself?to proc eed at this time with endoscopy. ? ? I plan to use Golytely bowel preparation ? Patient notes she works at [employer] and is requesting to have procedure completed there. Discussed that [facility] will contact her to arrange COVID testing ? ? Patient verbalized understanding of all above and agreed with the plan. ? ? ? Diagnoses: (Z12.11) Encounter for screening for malignant neoplasm of colon (primary encounter diagnosis) ? ? Zeynep Zazueta PA-C
[2020-02-12 11:42] VITALS: BP 126/76; PULSE 79; RESP 16; TEMP 36.1; O2SAT 98; BMI 34.8
[2020-02-12] MEDS: Lactated Ringers 1,000 ML 75 ML IV (11:46)
--- NOTE | 2020-02-12 12:55 | OP.COLON_ITS ---
Patient Name: Sandra Almendarez Procedure Date: 02/12/2020 12:27 PM Date of : 1965 Age: 55 Procedure: Colonoscopy Indications: Screening for colorectal malignant neoplasm Providers: Elidia Marcelo MD Referring MD: Jude Greenwood Medicines: See the Anesthesia note for documentation of the administered medications Patient Profile: Refer to note in patient chart for documentation of history and physical. Last Colonoscopy: none. The patient's first colonoscopy is today. Complications: No immediate complications. Procedure: Pre-Anesthesia Assessment: - see anesthesia note After I obtained informed consent, the scope was passed under direct vision. Throughout the procedure, the patient's blood pressure, pulse, and oxygen saturations were monitored continuously. The colonoscope was introduced through the anus and advanced to the cecum, identified by the appendiceal orifice, ileocecal valve and palpation. The colonoscopy was performed without difficulty. The patient tolerated the procedure well. The quality of the bowel preparation was adequate. Scope In: 12:33:53 PM Scope Withdrawal Time 0 hours 9 minutes 22 seconds Scope Out: 12:50:47 PM Total Procedure Duration Time 0 hours 16 minutes 54 seconds Findings: The perianal and digital rectal examinations were normal. Pertinent negatives include normal sphincter tone. Multiple small and large-mouthed diverticula were found in the sigmoid colon. Non-bleeding internal hemorrhoids were found. Impression: - Diverticulosis in the sigmoid colon. - Non-bleeding internal hemorrhoids. - No specimens collected. Recommendation: - Repeat colonoscopy in 10 years for screening purposes. - Return to primary care physician PRN. - Continue present medications. Procedure Code(s): --- Professional --- G0121, Colorectal cancer screening; colonoscopy on individual not meeting criteria for high risk Diagnosis Code(s): --- Professional --- K57.30, Diverticulosis of large intestine without perforation or abscess without bleeding K64.8, Other hemorrhoids Z12.11, Encounter for screening for malignant neoplasm of colon CPT copyright 2017 [employer]. All rights reserved. The codes documented in this report are preliminary and upon medical biller/coder review may be revised to meet current compliance requirements. MD Elidia Tripp MD 02/12/2020 12:55:21 PM This report has been signed electronically. Number of Addenda: 0 Note Initiated On: 02/12/2020 12:27 PM
--- NOTE | 2020-02-12 12:55 | OP.CCLET_ITS ---
02/12/2020 Jude Greenwood Re : Colonoscopy procedure for Sandra Almendarez Dear Timo This procedure was performed on Wednesday, February 12, 2020. My impressions and recommendations are as follows: Impressions : - Diverticulosis in the sigmoid colon. - Non-bleeding internal hemorrhoids. - No specimens collected. Recommendations : - Repeat colonoscopy in 10 years for screening purposes. - Return to primary care physician PRN. - Continue present medications. My findings are described in the full procedure note, which is enclosed. If I can be of further assistance, please feel free to contact me at Doctor phone number(s): , Work: . Sincerely, MD Elidia Tripp MD 02/12/2020 12:55:21 PM This report has been signed electronically.
[2020-02-12 12:56] VITALS: BP 107/73; BP 126/76; PULSE 62; RESP 16; TEMP 36.4; O2SAT 99
[2020-02-12 13:00] VITALS: BP 101/74; BP 126/76; PULSE 61; RESP 16; O2SAT 100
[2020-02-12 13:05] VITALS: BP 106/77; BP 126/76; PULSE 60; RESP 16; O2SAT 97
[2020-02-12 13:10] VITALS: BP 116/60; BP 126/76; PULSE 64; RESP 16; TEMP 36.4; O2SAT 97
[2020-02-12 13:30] VITALS: BP 126/76
== END 2020-02-12 13:30 | disposition home or self-care (01) ==
LOC: EN 11:18 → AC 11:19
PROVIDERS: Anesthesiology; PCP Family Medicine; Referring Provider Family Medicine; Visit Provider Surgery
PROC: 0DJD8ZZ Inspection of Lower Intestinal Tract, Via Natural or Artificial Opening Endoscopic (ICD-10-PCS; CPT 45378; principal; 2020-02-12 12:40)
DX: Z12.11 Encounter for screening for malignant neoplasm of colon (principal); K57.30 Diverticulosis of large intestine without perforation or abscess without bleeding; K64.8 Other hemorrhoids; E11.9 Type 2 diabetes mellitus without complications; I10 Essential (primary) hypertension; K21.9 Gastro-esophageal reflux disease without esophagitis; J30.1 Allergic rhinitis due to pollen; Z79.82 Long term (current) use of aspirin; Z79.899 Other long term (current) drug therapy; Z80.3 Family history of malignant neoplasm of breast; Z82.49 Family history of ischemic heart disease and other diseases of the circulatory system; Z87.891 Personal history of nicotine dependence
CPT/HCPCS: 45378; 87635; C9803; J7120; J2405; U0003

== ENCOUNTER → 2020-06-04 12:53 | Outpatient (CLI) | payer OTHER, SELFPAY ==
--- NOTE | 2020-06-04 12:54 | BI_ITS ---
MAMMOGRAPHY - BILATERAL SCREENING REASON FOR EXAM: Female, 55 years old. Routine annual screening examination. PERTINENT HISTORY: Sister with breast cancer. Grandmother with breast cancer. TECHNIQUE: Digital bilateral breast janey (3D mammographic acquisition) in the CC and MLO projections. 2-D mediolateral oblique (MLO) and craniocaudad (CC) views of both breasts were obtained. CAD: Full Field Digital Mammography with Computer Added Detection was performed. COMPARISON: Comparison is made with prior study dated 05/18/2019 and 05/18/2018. FINDINGS: Breast Composition: The breasts are almost entirely fatty. There are no dominant masses or suspicious calcifications. Stable benign-appearing bilateral axillary lymph nodes. No other significant abnormalities are identified. There has been no significant change since the prior study. BI/SCRN MAMM (CAD)W/JANEY BILAT IMPRESSION: Stable bilateral screening mammogram. Yearly follow-up mammogram recommended. (A) ASSESSMENT CATEGORY: BIRADS Category 2: Benign. A letter regarding these results will be sent to the patient by the facility within 30 days. Approximately 10% of breast cancers are not detected by mammography. A normal mammogram should not delay biopsy of a clinically suspicious abnormality. [id number] Electronically Signed: Severiano Langford MD at 13:52 EST , Service support ,
== END ==
PROVIDERS: PCP Family Medicine; Referring Provider Nurse Practitioner Women's Health; Visit Provider Nurse Practitioner Women's Health
DX: Z12.31 Encounter for screening mammogram for malignant neoplasm of breast (principal); Z80.3 Family history of malignant neoplasm of breast
CPT/HCPCS: 77063; 77067

== ENCOUNTER → 2020-08-05 08:54 | Outpatient (CLI) | payer OTHER, SELFPAY ==
--- NOTE | 2020-08-05 09:02 | CT_ITS ---
STUDY: CT RIGHT LOWER EXTREMITY WITHOUT CONTRAST REASON FOR EXAM: Osteoarthritis of the right knee, surgical planning. TECHNIQUE: Transaxial CT imaging of the lower extremity was performed. Coronal and sagittal images were reformatted. Individualized dose optimization techniques were used for this CT. COMPARISON: MRI images 01/23/2019. FINDINGS: Knee: There are small marginal osteophytes of the medial femoral condyle and mild joint space narrowing of the medial femorotibial compartment (coronal reconstruction 32). There are small marginal osteophytes of the lateral femorotibial compartment with preservation of joint space. There are marginal osteophytes of the patella and severe joint space narrowing of the patellofemoral articulation (axial image 228). There is lateral subluxation of the patella. Normal proximal tibiofibular articulation. There is no joint effusion. The quadriceps tendon is grossly normal. The patellar tendon is grossly normal. Normal Hoffa''s fat pad. There are posterior intra-articular bodies (coronal reconstructions 46, 47). There is an ossicle at the lateral aspect of the patella. Hip: There are marginal osteophytes of the right hip joint, subchondral cystic change of the lateral acetabulum and joint space narrowing of the right hip (coronal reconstruction 63). Ankle: Normal tibiotalar, posterior subtalar, talonavicular and calcaneocuboid articulations. CT/Extremity Lower without Contra IMPRESSION: Advanced osteoarthritis of the patellofemoral articulation with lateral subluxation of the patella. Mild osteoarthritis of the medial femorotibial compartment. Intra-articular bodies in the posterior right knee. Electronically Signed: Wai Segura MD at 14:43 EDT Tel , Service support ,
== END ==
PROVIDERS: PCP Family Medicine; Visit Provider Specialist
DX: M17.11 Unilateral primary osteoarthritis, right knee (principal)
CPT/HCPCS: 73700

== ENCOUNTER 2020-08-27 05:28 | Day surgery (SDC) | payer OTHER, SELFPAY ==
--- NOTE | 2020-08-14 12:20 | HP.PCM_ITS ---
History and Physical History and Physical [facility] Patient Name: Sandra Almendarez : 1965 From:? RASHEL LYONS PA-C? DATE OF SURGERY:? 08/27/2020 SCHEDULED PROCEDURE:? right total knee arthroplasty HISTORY OF PRESENT ILLNESS: Preoperative history and physical exam was performed on August 13, 2020.? This is a 55-year-old female who is been having ongoing pain for 10+ years with her right knee.? Patient's pain has been aching, sharp, sore.? Pain is increased with going up and down stairs, driving, sitting, walking.? She has difficulty with activities of daily living especially with any walking long distances.? She does have start up pain.? She feels unsafe carrying her grandchildren up and down stairs.? She has tried conservative measures consisting of rest, ice, elevation and previous cortisone injections with minimal relief.? She has had previous Euflexxa injections in April 2020.? She reports no relief in those injections.? She has been on oral medications including nonsteroidal anti- inflammatories and Celebrex.? Patient has had a previous right knee arthroscopy in 2019 with chondroplasty and medial meniscectomy.? She currently denies any chest pain, shortness of breath, fevers chills, recent infections.? Patient has also been through previous physical therapy without much relief.? We're obtaining surgical clearance from the primary care physician Dr. Greenwood.? After failing conservative measures and discussing treatment options with Dr. Glenroy He, the patient does wish to proceed with a right total knee arthroplasty. REVIEW OF SYSTEMS: ROS: Const: Denies anorexia, anxiety, change in appetite, fever, difficulty sleeping and weight change. CV: Denies chest pain, heart murmur, irregular heartbeat and peripheral vascular disease. Resp: Denies asthma, cough, pneumonia, sleep apnea, shortness of breath, tuberculosis and wheezing. GI: Reports heartburn, but denies constipation, diarrhea, nausea, rectal itching, bloody stools and vomiting. : Denies incontinence. Musculo: Denies leg swelling, pain, trouble walking and weakness. Skin: Denies Raynaud's, history of shingles and tattoo. Neuro: Reports numbness/tingling but denies ambulatory dysfunction, dizziness and tremor. Psych: Denies anxiety, depression, insomnia, mental illness and stress. Dav/Lymph: Denies anemia, bleeding/bruising tendency and past transfusion. Reviewed, no changes. PAST MEDICAL HISTORY: Advance Care Plan: Other Directive, living will Effective Date: 03/11/2020 PMH: Medical Problems: Covid Vaccine - (04/2020) (05/19/2020) Anxiety Accidents: None Surgical Hx: Right wrist cyst biopsy (negative) RT CTR - (04/30/2009) [email or web address] LT CTR - (08/03/2010) [email or web address] Hernia Repair - (2011) [facility] Bilat Bunion SX - (2013) [facility] RT Knee Arthroscopy - (02/12/2019) [email or web address] Anesthesia Complications: Nausea Assistive Devices: Glasses Reviewed and updated. SOCIAL HISTORY: SH: Marital: .Occupation: [place] - [facility] [employer] [employer].Work Status: Currently Working.Hand Dominance: Right-handed. Personal Habits:? Cigarette Use: Former.Smokeless Tobacco: Never Used Smokeless Tobacco.E-Cigarette Use: Never used.Alcohol: Occasionally.Drug Use: Denies Use.Enjoy Exercising: Never Exercises. Reviewed, no changes. VITALS: Ht: 64.2 Wt: 205lb Wt k.988 BMI: 35.0 BP: 110/70 Pulse: 66 Resp: 12 T: 97.2 T: 36.2C Pain Level: 2 ALLERGIES: No Known Drug Allergy? MEDICATIONS: Oxycodone HCL 5 mg 1-2 tab by mouth every 4 hours, Promethazine HCL 12.5 mg 1-2 tablets by mouth every 6 hours, Famotidine 20 mg 1 by mouth every day, Celebrex 200 mg 1 by mouth every day, Paxil 10 mg 1/2 tab by mouth daily, Aspirin 81 81 mg 1 tab by mouth daily, Ibuprofen 200 mg prn PRE-OP EXAM:? General appearance:NORMAL? ? ? Other: Eyes: Conjunctivae and lids: NORMAL? Pupils: ERR Ears, Nose, Mouth, and Throat: NORMAL? Other: Inspection of lips, teeth and gums: NORMAL? ?Other: Neck: Examination of neck: no masses noted. Respiratory: Assessment of respiratory effort: NORMAL? ?Other: ?Auscultation of lungs: clear to auscultation no wheezes, rhonchi or rales. Cardiovascular:? Auscultation of heart: regular rate and rhythm, no murmurs, gallops or rubs. Exam of carotid arteries: NORMAL? ?Other: Gastrointestinal:? Exam of abdomen: soft, nontender, nondistended bowel sounds present. PHYSICAL EXAMINATION: Patient does walk with an antalgic gait.? Patient has tenderness to palpation surrounding the patellofemoral joint medially/laterally.? She has positive crepitus with range of motion.? Trace effusion.? Range of motion: 0 extension to 129 flexion.? Stable to varus/valgus stress test, stable to anterior/posterior drawer.? Sensation intact to light touch. IMAGING STUDIES: Previous MRI and x-rays reveal severe grade 4 patellofemoral joint osteoarthritis with tongue and groove bony erosions.? There is valgus alignment and lateral joint space narrowing with marginal osteophyte.? Previous MRI 2019 reveals chondral malacia of the medial lateral compartments and previous medial meniscus tear.? Arthroscopic images revealed severe patellofemoral chondral malacia with medial meniscectomy. IMPRESSION: 1.? Right knee osteoarthritis 2.? Anxiety PLAN: Dr. Glenroy He did discuss and review with the patient all treatment options including surgical versus nonsurgical options.? Patient does wish to proceed with the above-stated procedure.? Potential risks, benefits, and complications of the procedure were discussed in detail including but not limited to , infection, nerve and blood vessel damage, persistent pain, numbness, tingling, paresthesias, blood clot, pulmonary embolism, and requirement for possible further surgery.? The patient expressed full understanding and has no further questions for the doctor.? Patient does agree to proceed with the above-stated procedure and has signed the surgery consent form. We discussed the current risks associated with COVID 19.? This does include the risk of exposure while in the hospital.? Patient was reassured local hospitals have low infection rates and are taking all necessary precautions to avoid exposure to patients.? In addition, we discussed strategies that can be used to help limit exposure including those that limit the patient's time in the hospital.? Also using strategies to limit the patient's need for continued inpatient services after being discharged from the hospital.? Patient was notified that we will need to comply with any screening or testing the hospital wishes to perform or that surgery may be delayed for any positive results. This dictation was created using voice recognition software. Phonetic and/or grammatical errors may exist. ___? I have re-examined the patient.? There are no clinical changes since date of exam. ___? See progress notes for changes. ___? Dictated on admission Date: ? ? ?Time: Signature:
--- NOTE | 2020-08-15 08:41 | EKG12_ITS ---
Test Reason : PREOP Blood Pressure : / mmHG Vent. Rate : 062 BPM Atrial Rate : 062 BPM P-R Int : 172 ms QRS Dur : 078 ms QT Int : 396 ms P-R-T Axes : 019 -14 019 degrees QTc Int : 401 ms Normal sinus rhythm Normal ECG Confirmed by GURDEEP CUNNINGHAM, ABAD ([id number]), department editor LUCILA HYDE ([id number]) on 08/18/2020 12:30:01 PM Referred By: KB Confirmed By:ABAD MACKENZIE MD
--- NOTE | 2020-08-15 08:52 | NURSING ---
pt reports she received second Moderna Vaccine 05/19/20
[2020-08-15 11:15] LABS: Absolute Lymphocyte Count 1.87 X10^3/uL (0.83-4.51); Absolute Neutrophil Count 3.9 X10^3/uL (2.0-7.7); Basophil# 0.06 X10^3/uL; Basophil% 0.9 % (0-1); Eosinophils% 1.5 % (0-5); Hematocrit 42.2 % (37-47); Hemoglobin 13.4 g/dL (12.0-15.0); Lymphocyte # 1.87 X10^3/ul (0.83-4.51); Lymphocyte % 28.8 % (19-41); Mean Corp Hgb Conc 31.8 g/dL (32-36); Mean Corpuscular Hgb 28.3 pg (27.0-32.0); Mean Corpuscular Volume 89.2 fL (81-99); Mean Platelet Vol. 9.2 fl (6.2-12.0); Monocyte# 0.52 X10^3/uL; NRBC Flagged by Analyzer 0 % (0-5); Neutrophil # 3.92 X10^3/uL (2.7-7.7); Neutrophil % 60.5 % (47-70); Platelet Count 362 K/mm3 (150-450); RBC Distribution Width CV 12.9 % (11.6-14.6); RBC Distribution Width SD 42.2 fl (35.1-43.9); Red Blood Count 4.73 M/mm3 (4.2-5.4); White Blood Count 6.5 K/mm3 (4.4-11.0)
[2020-08-15 11:47] LABS: Magnesium 2.4 mg/dL (1.6-2.6)
[2020-08-15 11:48] LABS: Anion Gap 3 (5-15); BUN 17 mg/dL (7-18); BUN/Creat Ratio 22.5 RATIO (10-20); Calcium,Total 8.7 mg/dL (8.5-10.1); Chloride 106 mmol/L (98-107); Creatinine, Serum 0.76 mg/dL (0.55-1.02); EST Glomerular Filtration Rate 84 mL/min (>60); Est Glom Filt Rate - Afr Amer 101 mL/min (>60); Glucose 83 mg/dL (74-106); Potassium 4.3 mmol/L (3.5-5.1); Sodium Level 137 mmol/L (136-145)
[2020-08-27] VITALS (11 sets, daily range): BP systolic 106–133; BP diastolic 56–84; PULSE 66–96; RESP 16–18; TEMP 36.2–36.5; O2SAT 95–100; BMI 34.6
[2020-08-27] MEDS: Gabapentin 600 MG Tablet PO (06:26)
[2020-08-27] MEDS: Acetaminophen 500 MG Tablet 1000 MG PO (06:26)
[2020-08-27] MEDS: Celecoxib 200 MG Capsule 400 MG PO (06:26)
[2020-08-27] MEDS: Scopolamine 1mg/72hr Patch 1 PATCH TD ×2 (06:27→07:00)
[2020-08-27] MEDS: Lactated Ringers 1,000 ML 999 ML IV ×2 (06:27→10:06)
--- NOTE | 2020-08-27 07:31 | PCM.OPRPT ---
Report of Operation Date of Procedure: 08/27/20 Pre-Operative Diagnosis: Right knee primary osteoarthritis Post-Operative Diagnosis: Right knee primary osteoarthritis Surgery/Procedure Performed:: Right minimally invasive robotic total knee replacement Description of Surgical Findings:: Stable knee with good patella tracking micromatic hone operator: Judith East Type of Anesthesia: Spinal Special Medications: 2 g Ancef, 1 g TXA at incision, 1 g TXA closure, 10 mg Decadron, joint cocktail (5 mg Duramorph, 30 mL of 0.5% Ropivicaine, 1000 units of epinephrine, 30 mg of Toradol) Specimen's removed: Bony cuts Estimated Blood Loss (mL): 50 mL Fluids Replaced: 1000 mL Description of Procedure: Implants used: 1. [place] size 2 triathlon cruciate retaining distal femoral press-fit component 2. [place] size 2 press-fit tritanium tibial baseplate 3. [place] X3 11 mm CS polyethylene 4. [place] X3 29 mm press-fit asymmetric patella Brief history operative indications: 55-year-old F with history of right knee osteoarthritis with radiographic findings with loss of joint space, osteophyte formation and subchondral sclerosis. Failed conservative measures as mentioned in the H&P. Discussion of total knee arthroplasty as well as risk and benefits were discussed the patient including but not limited to blood loss, DVTs, PEs, neurovascular damage, general risk of anesthesia including loss of life, and stiffness or instability were discussed with patient. Patient demonstrated understanding and was able to sign informed consent. Procedure: On the date of procedure patient's right lower extremity was marked in the preoperative area. The patient was then taken back to the operating room where the patient was placed on the table in the supine position. All bony prominences were identified a well-padded. Anesthesia assumed control of the C-spine and airway and remained controlled throughout the remainder of the procedure. A tourniquet was placed on the right upper thigh and the leg was prepped in a sterile fashion. The surgeon then scrubbed at this time .Upon reentering the room right lower extremity was draped in a standard orthopedic fashion. A timeout was then called and everyone agreed upon the side, the site, the procedure to be performed, patient's identity and antibiotics given. Esmarch bandage was used to exsanguinate the extremity and the tourniquet was placed up to 250 mmHg with the knee in flexion. A midline skin incision was made and sharp dissection was taken down through skin subcutaneous tissue and fat. The standard medial parapatellar incision was made and the patella was subluxed laterally. An Appropriate deep MCL release was done and the fat pad was resected. Our attention was then directed to the patella. The patella was everted and a flat resection was made. The knee was then flexed up in 2 femoral pins were placed inside the incision and 2 tibial pins were placed outside the incision in the medial tibia bicortically. Once this was completed the 2 checkpoints in the femur and tibia were placed. Knee was then flexed up and the bony landmarks were registered. Once this was completed knee was taken through range of motion and manually stressed allowing us to a plan for an appropriate tibial cut. The robotic arm was brought into the field sterilely and checkpoint and saw were registered. Based on the patient's deformity the tibial cut was made in neutral. At this time the tensioner was then placed in the joint and ligament tension was checked at 90 degrees and full extension. Based on the patient's ligamentous tension appropriate adjustments were made to the operative plan and ligament releases were done. Once we were happy with our operative plan with balanced flexion and extension gaps our attention was directed to the femur. The robot was brought into the field sterilely and registered. Posterior condylar cuts, anterior chamfer cuts and anterior cuts were appropriately made for a size 2 femur. When these were completed the saws were switched out in the distal femoral and posterior chamfer cuts were made. Protecting the soft tissue throughout this time. A size 2 tibial base plate was selected. the knee was flexed to 90 degrees and the soft tissues and posterior osteophytes were removed from the joint. 40 cc of the periarticular injection was injected into the posterior medial corner of the joint. The appropriate trials were then placed on the femur and tibia. A trial polyethylene was trialed to ensure proper balancing and stability of the knee. The appropriate tibial internal rotation was then marked with a bovie. Our attention was then directed to the patella. The lug holes were drilled and the patella trial was placed. Patellar tracking was checked and deemed appropriate. Once we were happy lug holes were drilled for the femur and trial components were removed. the tibia was subluxed and pinned into place and the keel was punched and drilled appropriately. Final components were verified and opened, and cement was mixed in a vacuum. [employer] Simplex cement was used. The wound was copiously irrigated with normal saline. When the cement was ready the components were impacted into place starting with the tibia, femur and finally impacting the patella. The trial poly component was placed and the knee was placed in full extension. All excess cement was removed in the process. Once the cement had cured the tracking, alignment and balance were verified and a size 11 mm CS polyethylene component was placed. Once the final components were placed a 3-minute dilute Betadine lavage was performed followed by an Irrisept lavage was performed and the wound was copiously irrigated with normal saline solution and the periarticular injection was given. The wound was closed in a layer hobson fashion using #1 vicryl interrupted sutures for the arthrotomy, 2-0 interrupted Vicryl suture for the subcuticular layer and ant for final skin closure. A sterile compressive dressing was then placed. The patient was then awakened from anesthesia, transferred to the [facility] and transferred to the PACU for recovery. Post op plan DVT ppx: ASA 81mg BID, thigh high compression stockings Follow up: in office in 2 weeks for wound check PT: to start POD #0 at hospital, outpatient PT should be arranged. My physician assistant construction superintendent was a vital part of this case. He was important in appropriate retraction during the case, and protection of soft tissues during bony cuts. His intimate knowledge of the case and my steps aided in safe and expedient completion of the procedure as well as appropriate position of the leg during the case. He was also vital in assisting with closure under my direct supervision. Due to the complexity of this case robotic arm was used to assist in the surgery to improve accuracy and clinical outcomes. Complications No intraoperative complications Admit VTE Documentation VTE Present on Admission: No VTE Mechan Device Prophylaxis: SCD's and Thigh High TIBURCIO Hose VTE Pharm Prophylaxis ordered?: Yes
[2020-08-27 07:41] LABS: Bedside Glucose 105 mg/dL (70-110)
[2020-08-27] MEDS: Cefazolin 2 GM in 0.9% Normal Saline 100 ML IV (08:10)
[2020-08-27] MEDS: dexAMETHasone 10 MG/ML Vial IV (08:10)
--- NOTE | 2020-08-27 10:14 | RAD_ITS ---
STUDY: X-RAY - RIGHT KNEE REASON FOR EXAM: Postop right total knee arthroplasty. TECHNIQUE: 2 view(s) of the knee. COMPARISON: Radiographs 01/09/2018. FINDINGS: There is a right total knee arthroplasty without evidence of complication. There is postoperative gas in the soft tissues and overlying skin ant. RAD/Knee 1 or 2 Views IMPRESSION: Uncomplicated right total knee arthroplasty. Electronically Signed: Wai Segura MD at 10:49 EDT Tel , Service support ,
[2020-08-27 10:31] LABS: Bedside Glucose 139 mg/dL (70-110)
[2020-08-27] MEDS: Lactated Ringers 1,000 ML 125 ML IV ×2 (10:43→11:40)
[2020-08-27] MEDS: Cefazolin 1 GM/50 ML BAG IV (12:05)
--- NOTE | 2020-08-27 13:03 | SUR.PHASEII ---
Patient taken off of O2 at 12:45pm per protocol. Patient tolerates being off of oxygen well.
--- NOTE | 2020-08-27 13:05 | SUR.PHASEII ---
Physical therapy called at 1300 to come evaluate patient, PT aware, will be down. Patient updated on progress and is agreeable. Patient does not need anything at this time. Call light in place, rails up, at bed side.
--- NOTE | 2020-08-27 13:29 | SUR.PHASEII ---
Physical Therapy contacted for ETA due to patient waiting 30 minutes already. PT advised they will be on their way shortly. Patient was updated and agreeable to plan.
== END 2020-08-27 14:03 ==
LOC: SDC 05:29 → AC 05:29
PROVIDERS: Anesthesiology; PCP Family Medicine; Referring Provider Specialist; Visit Provider Specialist
PROC: 0SRC0JZ Replacement of Right Knee Joint with Synthetic Substitute, Open Approach (ICD-10-PCS; CPT 27447; principal; 2020-08-27 07:30)
DX: M17.11 Unilateral primary osteoarthritis, right knee (principal); F41.9 Anxiety disorder, unspecified; Z79.1 Long term (current) use of non-steroidal anti-inflammatories (NSAID); Z79.82 Long term (current) use of aspirin; Z79.899 Other long term (current) drug therapy; Z96.651 Presence of right artificial knee joint
CPT/HCPCS: 01402; 27447; 36415; 73560; 80048; 82962; 83735; 85025; 87077; 87081; 93005; 97161; C1776; J7120

== ENCOUNTER 2020-10-27 09:30 | Outpatient (RCR) | payer OTHER, SELFPAY ==
[2020-08-27 06:19] VITALS: BMI 34.6
--- NOTE | 2020-08-29 13:25 | HP.PTEVAL_ITS ---
Patient's Visit Information LUIS DAVIS is a 55 year old F referred to Physical Therapy by Dr. Glenroy He MD with a diagnosis of R Total Knee Replacement. Date of Evaluation: 08/29/20 Physical Therapist: Mihir Jordan DPT - Visit Plan Frequency: 2-3x /Week Duration: 4-6 Weeks Plan: Have the pt. increase her flexion and extension ROM, as well as incorporate gentle strengthening exercises. Decrease her pain with ice and vasocompression at the end of each session, if the pt. needs. The pt. is currently independent with ankle pumps, TKE's into a towel, heel slides, and SLR's. Have the pt. perform a TUG at the 2nd visit. - Subjective The pt. comes to PT today s/p a R knee replacement with surgery on Tuesday, August [address]. The pt. reports that she had arthritic changes in her R knee, which resulted in getting her knee replaced. She states that her pain is a 9/10 today and can get up to a 10/10. She is currently taking Oxycodone and Extra strength Tylenol for pain relief, icing, propping her leg up while sitt ing, and wearing thigh high compression stockings. 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 She reports that getting out of bed, ascending/descending stairs, getting in/out of a car, and doing ADL's around her home are difficult. Currently she is sleeping in her recliner at home, due to getting in and out of bed causes her pain and is unable to sleep throughout the night. She denies any N/T, change in mentation, change in weight, nausea/vomiting, fevers/chills/sweats, SOB, chest pain, changes in vision/hearing, and headaches. - Pain R Knee Pain Intensity (Out of 10): 9 Pain Intensity Range: 10 - Objective Posture: Forward head, rounded shoulders, increase in thoracic kyphosis. Observation: The incision site looked like it was healing well and the bandage was still intact. Minimal redness on the medial side of the patella, mild warmth to the touch, and moderate swelling around the knee joint. Homans sign was negative and no signs of pitting edema or redness distal the the knee joint. Gait: Ambulating with a front wheeled walker, decreased weight acceptance on R limb, decreased knee extension during stance phase on R limb, decreased step length with L limb. ROM: R Knee flexion 92deg, R knee extension 15deg from 0. MMT: Hip flexion L 4/5, R 3/5, knee extension L 5/5, R 3/5, knee flexion L 5/5, R 4/5, dorsiflexion/inversion L 5/5, R 4+/5, eversion L 5/5, R 4+/5. Pt. was able to complete 3 SLR in hook-lying. Girth: 6 inches above = 54cm, around center of the patella = 44.5cm, 6 inches below = 44cm - Goals Goal 1:: LTG: The pt. will be independent and compliant with her HEP. Goal Time Frame: 2-4 Weeks Goal 2:: LTG: The pt. will increase her flexion and extension ROM to be within normal limits, so she can improve and normalize her gait pattern. Goal 3:: LTG: The pt. will improve her knee extension strength by 1-2 grades, so she can get up from a chair without limitations. Goal Time Frame: 2-4 Weeks Goal 4:: LTG: The pt. will decrease her pain to a 3/10 while performing all ADL's. Goal Time Frame: 2-4 Weeks Goal 5:: LTG: Pt. to have normal gait pattern without increase in symptoms without use of AD for unlimited distances. Goal Time Frame: 4-6 Weeks Goal 6:: LTG: pt. to negotiate steps with reciprocal pattern with 1 HR without limitations. Goal Time Frame: 4-6 Weeks - Rehabilitation Potential Physical Therapy Diagnosis: The pt. is a 55 yo female, s/p R total knee replacement, who underwent surgery on August 27 for R knee primary OA. The pt. presents to the clinic with decreased flexion and extension ROM, decreased R LE extremity strength, increased inflammation, and increased pain. The pt. is needing PT to address her functional limitations and impairments, so she can perform all ADL's at home and go back to work in October. Rehabilitation Potential: Good - Anticipated Interventions Patient/Client Instruction: Educate patient on: Condition, Plan of Care For the Purpose of:: To decrease pain, To decrease swelling/inflammation, To increase ROM, To improve nutrient delivery to tissue, To improve muscle performance and motor function, To improve ability to perform ADL's, To improve gait and locomotor functions, To improve health of tissue, To assume or resume ADL's, To improve tolerance to ADL's Therapeutic Exercise to Include: Strength training, Endurance training, Coordination, Body mechanics, Flexibilty training, Gait and locomotor training, Passive ROM, Active ROM For the Purpose of:: To decrease pain, To decrease swelling/inflammation, To increase ROM, To improve muscle performance and motor function, To improve ability to perform ADL's, To increase tolerance to activity/condition/position, To improve performance and independence with ADL's, To improve gait and locomotor functions, To increase flexibility/ROM, To improve endurance, To assume or resume ADL's, To improve tolerance to ADL's Manual Therapy Techniques to Include: Mobilization, Passive ROM For the Purpose of:: To decrease pain, To increase ROM, To improve muscle performance and motor function, To increase flexibility/ROM, To improve tolerance to ADL's Cryotherapy (ice pack, ice massage): Yes Thermo therapy (hot pack): Yes Ultrasound (thermal/non thermal): Yes Vasopneumatic device: Yes For the Purpose of:: To decrease pain, To decrease swelling/inflammation, To increase ROM, To improve muscle performance and motor function, To improve ability to perform ADL's, To improve health of tissue, To increase flexibility/ROM, To improve tolerance to ADL's Thank you for the opportunity to evaluate your patient. For Medicare and Medicare HMO plans, please review the plan of care and approve it. It will need to be FAXED BACK to us at [phone] for Medicare purposes. For Medicare only, by signing this I certify the plan of care. Please let me know if there are questions or concerns regarding this plan of care. Physician Signature: Date:
--- NOTE | 2020-09-19 10:54 | HP.PTREVAL ---
Dr. Glenroy He MD, It has been my pleasure to treat LUIS DAVIS over the last 10 visits for R Total Knee Replacement. Please see the progress note below for an update on the physical therapy plan of care! Subjective: Pt. states that she is doing good today, but feeling tired. She does state that she has some stiffness in the knee, but it is not painful. It is mostly stiff in the morning, so she did ice it earlier today. Objective/Function: Pt. did well with PT, but did have some knee pain in the R lateral aspect of her knee while performing a few exercises. The pt. is still lacking full knee extension in supine and while ambulating. Pt. did have some redness near the incision on her R knee and may have opened up under the scab. Pt. to call doctor to follow up. Knee extension ROM: -5deg from 0deg of full knee extension. Knee flexion was not tested today, due to the pts. fractured patella and the doctors order of not progressing past 90deg of flexion. MMT: knee extension R 4/5, L 5/5, knee flexion R 4/5, L 5/5 Plan Plan: Pt. to continue strengthening the hip and knee musculature. Increase extension ROM to 0deg, flexion remain at 90deg until after doctors visit on September 29. Goals Goal 1:: LTG: The pt. will be independent and compliant with her HEP. Goal Time Frame: 2-4 Weeks Goal 2:: LTG: The pt. will increase her flexion and extension ROM to be within normal limits, so she can improve and normalize her gait pattern. Goal 3:: LTG: The pt. will improve her knee extension strength by 1-2 grades, so she can get up from a chair without limitations. Goal Time Frame: 2-4 Weeks Goal 4:: LTG: The pt. will decrease her pain to a 3/10 while performing all ADL's. Goal Time Frame: 2-4 Weeks Goal 5:: LTG: Pt. to have normal gait pattern without increase in symptoms without use of AD for unlimited distances. Goal Time Frame: 4-6 Weeks Goal 6:: LTG: pt. to negotiate steps with reciprocal pattern with 1 HR without limitations. Goal Time Frame: 4-6 Weeks Anticipated Interventions Patient/Client Instruction: Educate patient on: Condition, Plan of Care For the Purpose of:: To decrease pain, To decrease swelling/inflammation, To increase ROM, To improve nutrient delivery to tissue, To improve muscle performance and motor function, To improve ability to perform ADL's, To improve gait and locomotor functions, To improve health of tissue, To assume or resume ADL's, To improve tolerance to ADL's Therapeutic Exercise to Include: Strength training, Endurance training, Coordination, Body mechanics, Flexibilty training, Gait and locomotor training, Passive ROM, Active ROM For the Purpose of:: To decrease pain, To decrease swelling/inflammation, To increase ROM, To improve muscle performance and motor function, To improve ability to perform ADL's, To increase tolerance to activity/condition/position, To improve performance and independence with ADL's, To improve gait and locomotor functions, To increase flexibility/ROM, To improve endurance, To assume or resume ADL's, To improve tolerance to ADL's Manual Therapy Techniques to Include: Mobilization, Passive ROM For the Purpose of:: To decrease pain, To increase ROM, To improve muscle performance and motor function, To increase flexibility/ROM, To improve tolerance to ADL's Cryotherapy (ice pack, ice massage): Yes Thermo therapy (hot pack): Yes Ultrasound (thermal/non thermal): Yes Vasopneumatic device: Yes For the Purpose of:: To decrease pain, To decrease swelling/inflammation, To increase ROM, To improve muscle performance and motor function, To improve ability to perform ADL's, To improve health of tissue, To increase flexibility/ROM, To improve tolerance to ADL's Please do not hesitate to contact me at [phone] by phone or if you have questions or concerns regarding this new plan of care! Sincerely, LOVE VeraT
--- NOTE | 2020-10-27 11:44 | HP.PTREVAL_ITS ---
Dr. Glenroy He MD, It has been my pleasure to treat LUIS DAVIS over the last 19 visits for R Total Knee Replacement. Please see the progress note below for an update on the physical therapy plan of care! Subjective: Pt. reports I am doing pretty well. I still have some pain when I sleep, but it is getting better.' Pt. reports being HEP compliant and has progressed her walking program. 0/10 pain pre treatment today. Objective/Function: Pt. is overall doing well. She had great ROM 0-0-130deg. of her R knee today. MMT: 5/5 throughout ankle, knee and hip. GAIT: Pt. has good gait pattern. She has slight antalgic pattern during R stance phase, but continues to improve. STAIRS: Pt. is able to negotiate with reciprocal pattern with 1 HR without issues. She has slight R hip rotation during descending, but able to complete normal once cued. Pt. is back to a walking routine and is progressing. She is scheduled to return to work in a few weeks. I want her to continue to progress her walking program leading up to starting working again. I also want her to continue to work on TKE in prone. Pt. consents. Plan Plan: Pt. to trial exercise on her own over the next few weeks as she returns back to work. I will leave her case open for the time being and she can come back if needed. Goals Goal 1:: LTG: The pt. will be independent and compliant with her HEP. Goal Time Frame: 2-4 Weeks Goal Progress: Goal Met Goal 2:: LTG: The pt. will increase her flexion and extension ROM to be within normal limits, so she can improve and normalize her gait pattern. Goal Progress: Goal Met Goal 3:: LTG: The pt. will improve her knee extension strength by 1-2 grades, so she can get up from a chair without limitations. Goal Time Frame: 2-4 Weeks Goal Progress: Goal Met Goal 4:: LTG: The pt. will decrease her pain to a 3/10 while performing all ADL 's. Goal Time Frame: 2-4 Weeks Goal Progress: Goal Met Goal 5:: LTG: Pt. to have normal gait pattern without increase in symptoms without use of AD for unlimited distances. Goal Time Frame: 4-6 Weeks Goal Progress: Goal Met Goal 6:: LTG: pt. to negotiate steps with reciprocal pattern with 1 HR without limitations. Goal Time Frame: 4-6 Weeks Goal Progress: Goal Met Anticipated Interventions Patient/Client Instruction: Educate patient on: Condition, Plan of Care For the Purpose of:: To decrease pain, To decrease swelling/inflammation, To increase ROM, To improve nutrient delivery to tissue, To improve muscle performance and motor function, To improve ability to perform ADL's, To improve gait and locomotor functions, To improve health of tissue, To assume or resume ADL's, To improve tolerance to ADL's Therapeutic Exercise to Include: Strength training, Endurance training, Coordination, Body mechanics, Flexibilty training, Gait and locomotor training, Passive ROM, Active ROM For the Purpose of:: To decrease pain, To decrease swelling/inflammation, To increase ROM, To improve muscle performance and motor function, To improve ability to perform ADL's, To increase tolerance to activity/condition/position, To improve performance and independence with ADL's, To improve gait and locomotor functions, To increase flexibility/ROM, To improve endurance, To assume or resume ADL's, To improve tolerance to ADL's Manual Therapy Techniques to Include: Mobilization, Passive ROM For the Purpose of:: To decrease pain, To increase ROM, To improve muscle performance and motor function, To increase flexibility/ROM, To improve bernie ance to ADL's Cryotherapy (ice pack, ice massage): Yes Thermo therapy (hot pack): Yes Ultrasound (thermal/non thermal): Yes Vasopneumatic device: Yes For the Purpose of:: To decrease pain, To decrease swelling/inflammation, To increase ROM, To improve muscle performance and motor function, To improve ability to perform ADL's, To improve health of tissue, To increase flexibility/ROM, To improve tolerance to ADL's Please do not hesitate to contact me at [phone] by phone or if you have questions or concerns regarding this new plan of care! Sincerely, Mihir Jordan DPT
--- NOTE | 2021-03-18 10:20 | HP.PT.NRP ---
LUIS DAVIS was seen in my office for initial evaluation on 08/29/20. The following Plan of Care was established for this patient: Initial Frequency: 2-3x /Week Initial Duration: 4-6 Weeks Patient/Client Instruction: Educate patient on: Condition, Plan of Care For the Purpose of:: To decrease pain, To decrease swelling/inflammation, To increase ROM, To improve nutrient delivery to tissue, To improve muscle performance and motor function, To improve ability to perform ADL's, To improve gait and locomotor functions, To improve health of tissue, To assume or resume ADL's, To improve tolerance to ADL's Therapeutic Exercise to Include: Strength training, Endurance training, Coordination, Body mechanics, Flexibilty training, Gait and locomotor training, Passive ROM, Active ROM For the Purpose of:: To decrease pain, To decrease swelling/inflammation, To increase ROM, To improve muscle performance and motor function, To improve ability to perform ADL's, To increase tolerance to activity/condition/position, To improve performance and independence with ADL's, To improve gait and locomotor functions, To increase flexibility/ROM, To improve endurance, To assume or resume ADL's, To improve tolerance to ADL's Manual Therapy Techniques to Include: Mobilization, Passive ROM For the Purpose of:: To decrease pain, To increase ROM, To improve muscle performance and motor function, To increase flexibility/ROM, To improve tolerance to ADL's Cryotherapy (ice pack, ice massage): Yes Thermo therapy (hot pack): Yes Ultrasound (thermal/non thermal): Yes Vasopneumatic device: Yes For the Purpose of:: To decrease pain, To decrease swelling/inflammation, To increase ROM, To improve muscle performance and motor function, To improve ability to perform ADL's, To improve health of tissue, To increase flexibility/ROM, To improve tolerance to ADL's This patient was last seen in our office 10/27/20. Pertinent comments regarding their Physical therapy will appear below: Pt. was seen for her TKA. Pt. at our last visit reported being 90% better overall. She was to trial exercises on her own and follow up with PT if needed. She has not been seen in several months and will be DC from PT at this point in time. At this point I will be discontinuing this patient from physical therapy. I would be happy to see this patient again in the future if found appropriate by the physician. Thank you! Mihir Hernandezos, DPT Balance/Gait/Functional tests - Balance/Special Test Scores Lower Extremity Functional Score: 64
== END 2020-10-27 19:00 | disposition home or self-care (01) ==
LOC: PT 09:30
PROVIDERS: PCP Family Medicine; Referring Provider Specialist; Visit Provider Specialist
DX: Z47.1 Aftercare following joint replacement surgery (principal); Z96.651 Presence of right artificial knee joint
CPT/HCPCS: 97110; 97140; 97161

== ENCOUNTER 2021-04-21 07:50 | Outpatient (CLI) | payer OTHER, SELFPAY | END 2021-04-21 23:59 | disposition short-term general hospital (02) | LOC: LABSPEC 04-22 08:05 | PROVIDERS: PCP Family Medicine; Referring Provider Physician Assistant Surgical; Visit Provider Physician Assistant Surgical | DX: R30.9 Painful micturition, unspecified (principal) ==

== ENCOUNTER 2021-04-21 18:06 | Outpatient (CLI) | payer OTHER, SELFPAY ==
[2021-04-21 18:09] LABS: Bacteria 0 SEEN /hpf (None Seen); Mucous, Urine 0 SEEN /hpf (<or=2+); Red Blood Cells-Urine 0 SEEN /hpf (0-5)
[2021-04-21 18:32] LABS: Color, Urine Straw (Yellow); Glucose, Dipstick Normal (Normal); Ketone-Dipstick Negative (Negative); Leukocyte Esterase-Dipstick Negative /ul (Negative); Nitrite-Dipstick Negative (Negative); Occult Blood-Urine Negative /ul (Negative); Protein-Dipstick Negative (Negative); Specific Gravity, Urine 1.005 (1.002-1.030); Urine Bilirubin Dipstick Negative (Negative); Urine Clarity Clear (Clear); Urine Urobilinogen Normal (Normal); Urine pH 6.5 (5.0 - 8.0)
[2021-04-21 18:37] LABS: Squamous Epithelial Cells - UA 0-5 SEEN /hpf (5-10); White Blood Cells 0-5 SEEN /hpf (0-5)
== END 2021-04-21 23:59 | disposition home or self-care (01) ==
LOC: LABSPEC 18:07
PROVIDERS: PCP Family Medicine; Visit Provider Physician Assistant Surgical
DX: R30.9 Painful micturition, unspecified (principal)
CPT/HCPCS: 81001; 87086; 87088

== ENCOUNTER 2021-07-27 12:53 | Outpatient (CLI) | payer OTHER, SELFPAY ==
--- NOTE | 2021-07-27 13:00 | RAD_ITS ---
STUDY: XR Knee Complete 4 Views or More 07/27/2021 4:52 PM REASON FOR EXAM: Female, 56 years old. PAIN TECHNIQUE: XR Knee Complete 4 Views or More LEFT COMPARISON: None FINDINGS: Normal visualized distal femur. Normal visualized proximal tibia and fibula. Normal proximal tibiofibular articulation. Normal medial femorotibial compartment. Normal lateral femorotibial compartment. Normal patellofemoral articulation. The soft tissue structures are unremarkable. RAD/Knee 4 or More Views IMPRESSION: There are no acute findings. Electronically Signed: Rohit Hill MD at 16:53 EDT ,
== END 2021-07-27 23:59 | disposition home or self-care (01) ==
PROVIDERS: PCP Family Medicine; Referring Provider Family Medicine; Visit Provider Family Medicine
DX: M79.605 Pain in left leg (principal); M25.562 Pain in left knee
CPT/HCPCS: 36415; 73564; 85379

== ENCOUNTER 2021-07-29 14:06 | Outpatient (CLI) | payer OTHER, SELFPAY ==
--- NOTE | 2021-07-29 14:32 | VDLE_ITS ---
Reason For Study: Leg pain Procedure LEFT This is a venous duplex using B-mode, color GSV is normal. flow and spectral Doppler. CFV is compressible, spontaneous, phasic, Exam performed in department. competent, and demonstrates normal A preliminary report was called and/or faxed augmentation. to [facility]. FV is compressible, spontaneous, phasic, competent and demonstrates normal augmentation. POP V is compressible, spontaneous, phasic, competent and demonstrates normal augmentation. T/P Trunk is compressible. PTV is compressible. LT PerV is compressible. VL/Venous Duplex US, Unilateral Interpretation Summary There is no evidence of left lower extremity deep vein thrombosis. Left great s aphenous vein appears patent and compressible segmentally. Ordering Physician: Jude Greenwood Referring Physician: Jude Greenwood Performed By: Eliza Meija RVT
== END 2021-07-29 23:59 | disposition home or self-care (01) ==
LOC: CVS 14:06
PROVIDERS: PCP Family Medicine; Visit Provider Family Medicine
DX: M79.605 Pain in left leg (principal)
CPT/HCPCS: 93971

== ENCOUNTER → 2022-01-20 | Outpatient (CLI) | payer OTHER, SELFPAY ==
[2022-01-27 11:57] LABS: HPV APTIMA, High Risk Negative (Negative)
== END | disposition home or self-care (01) ==
LOC: LABSPEC 15:50
PROVIDERS: PCP Family Medicine; Visit Provider Nurse Practitioner Women's Health
DX: Z78.0 Asymptomatic menopausal state (principal)
CPT/HCPCS: 87624; 88175; G0145

== ENCOUNTER → 2022-02-08 | Outpatient (CLI) | payer OTHER, SELFPAY ==
--- NOTE | 2022-02-08 15:13 | BI_ITS ---
MAMMOGRAPHY - BILATERAL SCREENING REASON FOR EXAM: Female, 57 years old. Routine annual screening examination. PERTINENT HISTORY: Sister with breast cancer. Grandmother with breast cancer. Prior right excisional breast biopsy. TECHNIQUE: Digital bilateral breast janey (3D mammographic acquisition) in the CC and MLO projections. 2-D mediolateral oblique (MLO) and craniocaudad (CC) views of both breasts were obtained. CAD: Full Field Digital Mammography with Computer Added Detection was performed. COMPARISON: Comparison is made with prior study dated 06/04/2020 and 05/18/2019. FINDINGS: Breast Composition: The breasts are almost entirely fatty. There are no dominant masses or suspicious calcifications. Stable small benign-appearing bilateral axillary No other significant abnormalities are identified. There has been no significant change since the prior study. BI/SCRN MAMM (CAD)W/JANEY BILAT IMPRESSION: Stable bilateral screening mammogram. Yearly follow-up mammogram recommended. (A) ASSESSMENT CATEGORY: BIRADS Category 2: Benign. A letter regarding these results will be sent to the patient by the facility within 30 days. Approximately 10% of breast cancers are not detected by mammography. A normal mammogram should not delay biopsy of a clinically suspicious abnormality. [id number] Electronically Signed: Severiano Langford MD at 9:25 EDT ,
== END | disposition home or self-care (01) ==
LOC: OPBI 15:12
PROVIDERS: PCP Family Medicine; Visit Provider Nurse Practitioner Women's Health
DX: Z12.31 Encounter for screening mammogram for malignant neoplasm of breast (principal); Z80.3 Family history of malignant neoplasm of breast
CPT/HCPCS: 77063; 77067

== ENCOUNTER → 2022-07-21 | Outpatient (CLI) | payer OTHER, SELFPAY ==
--- NOTE | 2022-07-21 07:58 | US_ITS ---
PROCEDURE: ABDOMINAL ULTRASOUND, RIGHT UPPER QUADRANT COMPARISONS: None. CLINICAL INDICATION: Right upper quadrant pain TECHNIQUE: Real-time monahan-scale abdominal ultrasound. Limited color Doppler evaluation is performed. FINDINGS: Liver: Normal in size and echogenicity. Appropriate hepatopetal flow is present in the main portal vein. Gallbladder: Normal wall thickness. No gallstones. Sonographic Steve''s sign is absent. No pericholecystic fluid is present. Biliary Tree: Nondilated. Common bile duct measures 4 mm. Pancreas: Limited evaluation of the head and body is unremarkable. Right kidney: Normal in size and echogenicity. No hydronephrosis or stones. The right kidney measures 10.5 cm in long axis. No free fluid. US/Abdomen Limited IMPRESSION: No acute findings in the right upper quadrant. Electronically Signed: Silvano Colin MD at 0:21 EDT ,
== END | disposition home or self-care (01) ==
LOC: US 07:56
PROVIDERS: PCP Family Medicine; Visit Provider Family Medicine
DX: R10.9 Unspecified abdominal pain (principal)
CPT/HCPCS: 76705

== ENCOUNTER → 2022-07-30 | Outpatient (CLI) | payer OTHER, SELFPAY ==
--- NOTE | 2022-07-30 11:50 | RAD_ITS ---
STUDY: X-RAY CHEST REASON FOR EXAM: Female, 57 years old. Cough. TECHNIQUE: Frontal and lateral views of the chest. COMPARISON: October 2014. FINDINGS: The lungs are clear and expanded. There is no demonstrated pleural abnormality. Stable mild cardiomegaly. Normal mediastinum and wilma. Normal visualized pulmonary arteries. Aortic tortuosity unchanged. Thoracic osteopenia with spondylosis and minimal thoracolumbar scoliosis. Normal visualized ribs, clavicles, and shoulders. There is no demonstrated abnormality of the visualized soft tissue structures of the upper abdomen. RAD/Chest PA and Lateral IMPRESSION: Stable chest with no acute superimposed finding. Electronically Signed: Joesph Liu, at 13:46 EDT ,
== END | disposition home or self-care (01) ==
LOC: RAD 11:49
PROVIDERS: PCP Family Medicine; Visit Provider Family Medicine
DX: R05.9 Cough, unspecified (principal)
CPT/HCPCS: 71046

== ENCOUNTER → 2023-03-03 | Outpatient (CLI) | payer OTHER, SELFPAY ==
--- NOTE | 2023-03-03 14:21 | BI_ITS ---
MAMMOGRAPHY - BILATERAL SCREENING REASON FOR EXAM: Female, 58 years old. Routine annual screening examination. PERTINENT HISTORY: Sister with breast cancer. Grandmother with breast cancer. Remote right excisional breast biopsy. TECHNIQUE: Digital bilateral breast janey (3D mammographic acquisition) in the CC and MLO projections. 2-D mediolateral oblique (MLO) and craniocaudad (CC) views of both breasts were obtained. CAD: Full Field Digital Mammography with Computer Added Detection was performed. COMPARISON: Comparison is made with prior examination February 08, 2022 and June 04, 2020. FINDINGS: Breast Composition: The breasts are almost entirely fatty. There are no dominant masses or suspicious calcifications. Stable small benign-appearing bilateral axillary lymph nodes. No other significant abnormalities are identified. There has been no significant change since the prior study. BI/SCRN MAMM (CAD)W/JANEY BILAT IMPRESSION: Stable bilateral screening mammogram. Yearly follow-up mammogram recommended. (A) ASSESSMENT CATEGORY: BIRADS Category 2: Benign. A letter regarding these results will be sent to the patient by the facility within 30 days. Approximately 10% of breast cancers are not detected by mammography. A normal mammogram should not delay biopsy of a clinically suspicious abnormality. [id number] Electronically Signed: Severiano Langford MD at 15:08 EST ,
== END | disposition home or self-care (01) ==
LOC: OPBI 14:20
PROVIDERS: PCP Family Medicine; Referring Provider Family Medicine; Visit Provider Family Medicine
DX: Z12.31 Encounter for screening mammogram for malignant neoplasm of breast (principal); Z80.3 Family history of malignant neoplasm of breast
CPT/HCPCS: 77063; 77067

== ENCOUNTER 2023-07-27 05:26 | Day surgery (SDC) | payer OTHER, SELFPAY ==
--- NOTE | 2023-07-05 06:15 | EKG12_ITS ---
Test Reason : PREOP Blood Pressure : / mmHG Vent. Rate : 070 BPM Atrial Rate : 070 BPM P-R Int : 150 ms QRS Dur : 074 ms QT Int : 386 ms P-R-T Axes : 022 -17 030 degrees QTc Int : 416 ms Normal sinus rhythm Normal ECG Confirmed by KENDY CUNNINGHAM, VERNA ([id number]), food expeditor SAJI BOJORQUEZ ([id number]) on 07/05/2023 8:04:01 AM Referred By: Glenroy He Confirmed By:VERNA LARRY MD
[2023-07-05 07:17] LABS: Absolute Lymphocyte Count 1.55 X10^3/uL (0.83-4.51); Absolute Neutrophil Count 5.1 X10^3/uL (2.0-7.7); Basophil# 0.06 X10^3/uL; Basophil% 0.8 % (0-1); Eosinophil# 0.12 X10^3/uL; Eosinophils% 1.6 % (0-5); Hematocrit 37.8 % (37-47); Hemoglobin 11.8 g/dL (12.0-15.0); Lymphocyte # 1.55 X10^3/ul (0.83-4.51); Lymphocyte % 20.5 % (19-41); Mean Corp Hgb Conc 31.2 g/dL (32-36); Mean Corpuscular Hgb 27.7 pg (27.0-32.0); Mean Corpuscular Volume 88.7 fL (81-99); Mean Platelet Vol. 9.1 fl (6.2-12.0); Monocyte# 0.67 X10^3/uL; Monocyte% 8.9 % (0-10); NRBC Flagged by Analyzer 0 % (0-5); Neutrophil # 5.14 X10^3/uL (2.7-7.7); Neutrophil % 67.8 % (47-70); Platelet Count 478 K/mm3 (150-450); RBC Distribution Width SD 45.3 fl (35.1-43.9); Red Blood Count 4.26 M/mm3 (4.2-5.4); White Blood Count 7.6 K/mm3 (4.4-11.0)
[2023-07-05 07:38] LABS: Albumin, Serum 3.7 g/dL (3.2-5.0); Anion Gap 7 (5-15); BUN 25 mg/dL (7-18); BUN/Creat Ratio 27.8 RATIO (10-20); Calcium,Total 9.2 mg/dL (8.5-10.1); Chloride 106 mmol/L (98-107); EST Glomerular Filtration Rate 68 mL/min (>60); Est Glom Filt Rate - Afr Amer 82 mL/min (>60); Glucose 116 mg/dL (74-106); Potassium 4.3 mmol/L (3.5-5.1); Sodium Level 138 mmol/L (136-145)
[2023-07-05 07:42] LABS: Magnesium 2.4 mg/dL (1.6-2.6)
[2023-07-27] VITALS (10 sets, daily range): BP systolic 124–151; BP diastolic 73–103; PULSE 75–112; RESP 16–20; TEMP 36.2–36.7; O2SAT 97–100; BMI 31.4
[2023-07-27] MEDS: Lactated Ringers 1,000 ML 999 ML IV ×2 (06:05→09:20)
[2023-07-27] MEDS: Magnesium 1 GM over 15 mins IV (06:06)
[2023-07-27] MEDS: Acetaminophen 500 MG Tablet 1000 MG PO (06:16)
[2023-07-27] MEDS: Gabapentin 600 MG Tablet PO (06:16)
[2023-07-27] MEDS: Celecoxib 200 MG Capsule 400 MG PO (06:16)
[2023-07-27 06:32] LABS: Bedside Glucose 86 mg/dL (74-106)
[2023-07-27] MEDS: Lactated Ringers 1,000 ML 75 ML IV (07:05)
--- NOTE | 2023-07-27 07:30 | FEM._PTH ---
PATIENT: LUIS DAVIS LOC: [facility] [place] U#:[id number] AGE/SX: 58/F ROOM: RE07/27/[address]: Dr. Glenroy He MD : 1965 BED: DIS: 07/27/2023 SPEC #: [id number] RECD: 07/27/23 11:24 STATUS: DAVID REQ #: [id number] LUIS: 07/27/23 07:[address]: Glenroy He DEPT: SURGICAL PATHOLOGY RECD BY: Saida Phelps ENTERED: 07/27/23 12:49 SP TYPE: FEM HEAD OTHR DR: Wesly Lawson MD Tissues: Hip, NOS Procedures: Decalcification bone/plaque Surgery Specimen Level IV HEADER OPERATION: ERAS, total hip anterior approach PRE-OP DIAGNOSIS: Severe right hip osteoarthritis TISSUE SUBMITTED: Right femoral head MICROSCOPIC DIAGNOSIS Bone and tissue of right hip, total hip resection: Severe degenerative joint disease. Focal osteonecrosis. Mild synovial hyperplasia with associated mild chronic inflammation. AM: 07/29/23 MICROSCOPIC DESCRIPTION Slides are reviewed. GROSS DESCRIPTION Received is one container labeled with the patient's name and designated bone and soft tissue right hip. The specimen consists of a deformed roper femoral head (with portion of femoral neck). The femoral head measures 3.5 x 4.0 x 3.5 cm. Also present in the container is a detached piece of bone consistent with portion of femoral neck measuring 4.0 x 2.5 x 1.0cm. The articular surface displays prominent osteophyte formation, eburnation and bone erosion. Also present in the specimen container are multiple irregular fragments of bone reamings and pink-yellow soft tissue measuring in aggregate 6.0 x 6.0 x 2.0 cm. Tool Rental Technician sections are submitted in two cassettes as follows: 1 - soft tissue, 2 - bone after decalcification. / 07/27/23 TC: 5 CPT: 26586, 80379
[2023-07-27] MEDS: Cefazolin 2 GM in 0.9% Normal Saline (100mL Bag) 100 ML IV (07:33)
[2023-07-27] MEDS: TXA 1000mg in NS100 100ml (IVPB at Incision) 660 MG IV (07:40)
[2023-07-27] MEDS: dexAMETHasone 10 MG/ML Vial IV (07:50)
--- NOTE | 2023-07-27 08:20 | RAD_ITS ---
PROCEDURE: Right anterior total hip replacement. DATE OF EXAMINATION: July 27, 2023. INDICATION: Female, 58 years old. Right hip replacement. FLUOROSCOPY TIME (if supplied): (2.7 seconds) minutes/seconds. 0.37 mGy. 3 fluoroscopic images were submitted. RAD/Hip 1 view with Pelvis IMPRESSION: Intraoperative fluoroscopic services provided for right anterior total hip replacement. Electronically Signed: Severiano Langford MD at 10:46 EDT ,
[2023-07-27] MEDS: TXA 1000mg in NS100 100ml (IVPB at Closure) 660 MG IV (08:34)
[2023-07-27] MEDS: JPS (Morphine 10mg/ml) OPERA.SITE (08:38)
--- NOTE | 2023-07-27 08:41 | OP_ITS ---
Date of Procedure: 07/27/23 Pre-Operative Diagnosis: Right hip primary osteoarthritis Post-Operative Diagnosis: Right hip primary osteoarthritis Surgery/Procedure Performed:: Right minimally invasive direct anterior total hip replacement Description of Surgical Findings:: Stable hip with equal leg length Surgeon: Glenroy He stranding machine operator helper: Faizan Luna Type of Anesthesia: Spinal Anesthesiologist: Ok Linares Special Medications: 2 g Ancef, 1 g TXA at incision, 1 g TXA closure, 10 mg Decadron, joint cocktail (5 mg Duramorph, 30 mL of 0.5% Ropivicaine, 1000 units of epinephrine, 30 mg of Toradol) Specimen's removed: Bony cuts Estimated Blood Loss (mL): 200 Fluids Replaced: 1500 Description of Procedure: Components used: 1. Insignia Corinna femoral stem size 1 high offset 2. [place] trident 2 acetabular shell size 48 mm 3. Corinna X3 polyethylene D 4. Corinna Biolox delta 32mm, 0mm femoral head Brief history operative indications: 58 yo F who failed conservative measures for their hip osteoarthritis. X-rays were consistent with osteoarthritis including joint space narrowing, osteophyte formation and subchondral cysts. Total hip replacement was discussed with the patient with risks and benefits including but not limited to blood loss, DVTs, PEs, neurovascular damage, dislocation, general risks of anesthesia including loss of life. Patient demonstrated an understanding medical clearance is obtained the patient was consented for surgery. Procedure: On the date of procedure the patient's right hip was marked in the preoperative area. Patient was then taken back to the operating room where anesthesia assumed control of the C-spine and airway and administered anesthetic. Patient was transferred to the operating table and placed in the supine position. The hips were placed at the break of the bed and a sacral bump was placed. The right lower extremity was then prepped out in a sterile fashion using chlorhexidine while the surgeon scrubbed. The PA was vital in the positioning of the patient. Upon reentering the room the right lower extremity was draped in the standard orthopedic fashion and the incision was marked. A timeout was called and everyone agreed upon the side, the site, the procedure be performed, antibody given, and patient's identity. At this time incision was made through skin, subcutaneous tissue, and fat down to fascia. The fascia was then incised and the TFL was retracted laterally. A retractor was placed on the lateral border of the femoral neck. Attention was directed to the inferior portion of the approach and all crossing vessels were identified and appropriately coagulated. A retractor was then placed on the medial portion of the femoral neck. The anterior capsule was then cleared of all soft tissue and then H shaped capsulotomy was made. The retractors were then placed inside the capsule. The femoral neck was identified and a cleanup cut was made. At this time a power corkscrew was used to remove the femoral head. Attention was then turned toward the acetabulum where the soft tissues were appropriately retracted and the acetabulum was sequentially reamed to 48 mm. A 48 mm cup was then selected and impacted into place. Acetabular liner was impacted into place and locking mechanism was verified. The position of the acetabular cup was then verified under live fluoroscopy. Attention was then turned to the femur. Soft tissue releases on the medial and lateral femoral neck were appropriately done, the leg was externally rotated and lateralized. A Moreno retractor was placed medially and proximally to the greater trochanter this allowed appropriate visualization and exposure of the femoral canal. Rongeour was then used to remove excess lateral bone. A canal finder and entry broach were used to open the proximal canal. Once we verified we were down the femoral canal we subsequently broached up to a size 1 femur. The appropriate neck was placed in the previously selected head was trialed with a 0 mm neck. Traction was pulled and the hip was reduced with internal rotation. Once it was appropriately reduced and stability was checked. There was minimal shuck, equal leg lengths and appropriate stability with hyperextension and external rotation as well as with 90? flexion and internal rotation. Fluoroscopy was then also used to verify the position of the components and leg lengths using the contralateral side for comparison. The trial components were then dislocated the proximal femur was again exposed and the components were removed from the wound. The final components were verified and opened. The wound was copiously irrigated out with normal saline. The acetabulum was checked for any residual debris. The final components were placed and impacted. Traction and internal rotation were again used to reduce the hip. After adequate reduction the hip remained stable with appropriate leg lengths. The final components were once again checked with live fluoroscopy and were found to be satisfactory. The wound was then copiously irrigated with normal saline once more, and hemostasis was obtained. Closure was then done using #1 Vicryl runner to close the fascia. A 2-0 vicryl interuppted sutures were used to close the subcutaneous skin. A 3-0 Monocryl and Steri-Strips were used for final skin closure. A Silverlon dressing was placed. Patient was awakened by anesthesia and transferred to the [facility]. Patient was then transferred to the PACU for recovery. During the course of the procedure the physician construction supervisor/carpenter (PE) played a vital role. Their intimate knowledge of my steps in the procedure aided in safe and expedient completion of the procedure. The PE played a vital rolls in positioning particularly in obtaining the appropriate positioning of the sacral bump. The PE was also vital in the retraction of soft tissues during the exposure and especially the femoral work as this is a vital part of the procedure to prevent complications and fractures. The PE was also vital and protecting soft tissues during times of bony cuts and reaming. He also played a vital role in closure with my direct supervision. The PE was also important during reduction and dislocation of the joint and trials intraoperatively. Postoperative plan: Patient will get 24 hours postop antibiotics. Patient will get in-house physical therapy and will be weight-bear as tolerated. Patient will follow up in office in 2 weeks for a wound check and x-rays. Aspirin 81 mg twice daily. Complications No intraoperative complications Admit VTE Documentation VTE Present on Admission: No VTE Mechan Device Prophylaxis: SCD's and Thigh High TIBURCIO Hose VTE Pharm Prophylaxis ordered?: Yes
--- NOTE | 2023-07-27 09:25 | RAD_ITS ---
STUDY: X-RAY - PELVIS AND RIGHT HIP REASON FOR EXAM: Female, 58 years old. GENTRY -- in PACU TECHNIQUE: 2 views of the pelvis and hip. COMPARISON: None. FINDINGS: The patient is status post right total hip replacement. There is good alignment. Postoperative soft tissue changes. RAD/Hip Min 2 Views (Portable) IMPRESSION: Status post right total hip replacement. There is good alignment. Postoperative soft tissue changes. Electronically Signed: Severiano Langford MD at 10:15 EDT ,
[2023-07-27] MEDS: Ketorolac 30 MG/ML Syringe IV (09:52)
[2023-07-27] MEDS: Cefazolin 1 GM/50 ML BAG IV (10:45)
[2023-07-27] MEDS: Lactated Ringers 1,000 ML 125 ML IV (10:55)
== END 2023-07-27 13:04 | disposition home or self-care (01) ==
LOC: SDC 05:26 → AC 05:29
PROVIDERS: Anesthesiology; PCP Family Medicine; Referring Provider Specialist; Visit Provider Specialist
PROC: (CPT 27284; principal; 2023-07-27 07:05)
DX: M16.11 Unilateral primary osteoarthritis, right hip (principal); F41.9 Anxiety disorder, unspecified; Z86.018 Personal history of other benign neoplasm; Z87.19 Personal history of other diseases of the digestive system; E78.00 Pure hypercholesterolemia, unspecified; Z87.891 Personal history of nicotine dependence; E66.9 Obesity, unspecified; Z68.32 Body mass index [BMI] 32.0-32.9, adult
CPT/HCPCS: 27130; 01214; 36415; 73501; 73502; 76000; 80048; 82040; 82962; 83735; 85025; 87081; 88305; 88311; 93005; 97162; C1776; J7120; J2405; J3475

== ENCOUNTER 2023-09-14 11:00 | Outpatient (RCR) | payer OTHER, SELFPAY ==
--- NOTE | 2023-07-20 12:39 | HP.PCM_ITS ---
History and Physical History and Physical? Patient Name: Sandra Almendarez : 1965 From:? RASHEL LYONS PA-C? DATE OF PRE-OPERATIVE EXAM: 07/20/2023 DATE OF SURGERY:? 07/27/2023 SCHEDULED PROCEDURE:? Right total hip arthroplasty HISTORY OF PRESENT ILLNESS: Preoperative history and physical exam was performed on July 20, 2023.? This is a 58-year-old female who has been having ongoing pain for over 7 months.? Her pain can reach 10/10 at times with activities.? On average the pain is 6/10.? Her pain has been constant, aching, sharp, stabbing.? Pain is increased with going up and down stairs, driving and walking.? She has difficulty with activities of daily living including getting dressed, housework, shopping and leisure activities.? She does state the pain awakens her at night.? Pain is located in the right groin radiating into the right hip and knee.? She has been walking with a limp which has been progressively been getting worse.? Patient did attempt an intra-articular right hip corticosteroid injection with no relief in symptoms.? She has attempted [id number] medications Tylenol and meloxicam with mild relief.? Patient has tried rest, ice, heat, elevation with minimal relief.? She has tried home exercises with no relief.? She denies past history of surgery on the right hip.? She has obtain surgical clearance from the primary care provider Dr. Lawosn.? Patient has medical history pertinent for hypercholesterolemia and anxiety.? She denies any past history of DVT or pulmonary embolism.? After failing conservative measures and discussing all treatment options with Dr. Glenroy He, the patient does wish to proceed with a right total hip arthroplasty.? Preoperative lab work and EKG has been obtained.? She has been started on our anemia protocol.? She denies past history of anemia. REVIEW OF SYSTEMS: ROS: Const: Denies anorexia, anxiety, change in appetite, fever, difficulty sleeping and weight change. CV: Denies chest pain, heart murmur, irregular heartbeat and peripheral vascular disease. Resp: Denies asthma, cough, pneumonia, sleep apnea, shortness of breath, tuberculosis and wheezing. GI: Reports heartburn, but denies constipation, diarrhea, nausea, rectal itching, bloody stools and vomiting. : Denies incontinence. Musculo: Denies leg swelling, pain, trouble walking and weakness. Skin: Denies Raynaud's, history of shingles and tattoo. Neuro: Reports numbness/tingling but denies ambulatory dysfunction, dizziness and tremor. Psych: Denies anxiety, depression, insomnia, mental illness and stress. Dav/Lymph: Denies anemia, bleeding/bruising tendency and past transfusion. Reviewed, no changes. PAST MEDICAL HISTORY: Advance Care Plan: Other Directive, living will Effective Date: 03/11/2020 PMH: Medical Problems: Anxiety, Hypercholesterolemia Accidents: Other - (01/2021) FELL ON RT KNEE? Other - (05/2021) FELL ON RT KNEE? Surgical Hx: Right wrist cyst biopsy (negative) RT CTR - (04/30/2009) [email or web address] LT CTR - (08/03/2010) [email or web address] Hernia Repair - (2011) [facility] Bilat Bunion SX - (2013) [facility] RT Knee Arthroscopy - (02/12/2019) [email or web address] Right TKR Robotic - (08/27/2020) [facility]W AT [facility] RT Hip Injection Under Fluoro - (02/17/2023) [facility]W AT [facility] Anesthesia Complications: Nausea Assistive Devices: Glasses Reviewed, no changes. SOCIAL HISTORY: SH: Marital: .Occupation: [place] - [employer].Work Status: Currently Working.Hand Dominance: Right-handed. Personal Habits:? Cigarette Use: Former.Smokeless Tobacco: Never Used Smokeless Tobacco.E-Cigarette Use: Never used.Alcohol: Occasionally.Drug Use: Denies Use.Enjoy Exercising: Never Exercises. Reviewed, no changes. VITALS: Ht: 63 Wt: 184lb Wt k.462 BMI: 32.6 BP: 118/76 Pulse: 72 Resp: 10 T: 96.8 T: 36.0C Pain Level: 9 O2SatR: 93 ALLERGIES: No Known Drug Allergy? MEDICATIONS: Oxycodone HCL 5 mg 1-2 tab by mouth every 4 hours as needed for pain, Ondansetron 4 mg 1 by mouth every 8 hours as needed for nausea, Famotidine 20 mg 1 by mouth every day, Paxil 10 mg 1/2 tab by mouth daily, Rosuvastatin Calcium 10 mg 1 by mouth every day, Tylenol Extra Strength 500 mg 2 by mouth every 8 hours, Iron (Ferrous Sulfate) 325 (65 Fe) MG one by mouth once per day, Folic Acid 1 mg 1 by mouth every day PRE-OP EXAM:? General appearance:NORMAL? ? ? Other: Eyes: Conjunctivae and lids: NORMAL? Pupils: ERR Ears, Nose, Mouth, and Throat: NORMAL? Other: Inspection of lips, teeth and gums: NORMAL? ?Other: Neck: Examination of neck: no masses noted. Respiratory: Assessment of respiratory effort: NORMAL? ?Other: ?Auscultation of lungs: clear to auscultation no wheezes, rhonchi or rales. Cardiovascular:? Auscultation of heart: regular rate and rhythm, no murmurs, gallops or rubs. PHYSICAL EXAMINATION: Patient currently walks with an antalgic gait.? Right hip has increased pain with any range of motion.? Flexion 90, internal rotation 5, external rotation 20.? 4/5 hip strength secondary to pain.? Sensation intact to light touch. IMAGING STUDIES: Previous x-rays of the right hip reveal joint space narrowing, subchondral sclerosis, osteophyte formation consistent with severe stage IV bone on bone osteoarthritis IMPRESSION: 1.? Severe right hip osteoarthritis 2.? Hypercholesterolemia 3.? Anxiety 4.? Obesity with BMI 32.6 PLAN: Dr. Glenroy He did discuss and review with the patient all treatment options including surgical versus nonsurgical options.? Patient does wish to proceed with the above-stated procedure.? Potential risks, benefits, and complications of the procedure were discussed in detail including but not limited to , infection, nerve and blood vessel damage, persistent pain, numbness, tingling, paresthesias, blood clot, pulmonary embolism, and requirement for possible further surgery.? The patient expressed full understanding and has no further questions for the doctor.? Patient does agree to proceed with the above-stated procedure and has signed the surgery consent form. POST-OP MEDICATION PLAN: Pain Medications:? Patient was given the following medications at the preoperative visit: Oxycodone, Zofran, famotidine.? Patient has a prescription for meloxicam already at home.? She was instructed to medicinal plant picker aspirin 81 mg, extra strength Tylenol, senna.? She has a walker of her own that she will bring to the hospital.? Patient will continue with the anemia protocol.? I did advise her of the risk of constipation on the ferrous sulfate.? If she is having increased constipation she can go from twice daily to once daily.? I also recommended she schedule a follow-up with her primary care physician 3 weeks postoperatively for repeat lab work and follow-up of her anemia.? She voiced understanding. DVT Prophylaxis:? Aspirin 81 mg twice daily for 4 weeks postoperatively.? Denies past history of DVT or pulmonary embolism This dictation was created using voice recognition software. Phonetic and/or grammatical errors may exist. ___? I have re-examined the patient.? There are no clinical changes since date of exam. ___? See progress notes for changes. ___? Dictated on admission Date: ? ? ?Time: Signature:
--- NOTE | 2023-07-27 08:41 | PCM.OPRPT ---
Report of Operation Date of Procedure: 07/27/23 Pre-Operative Diagnosis: Right hip primary osteoarthritis Post-Operative Diagnosis: Right hip primary osteoarthritis Surgery/Procedure Performed:: Right minimally invasive direct anterior total hip replacement Description of Surgical Findings:: Stable hip with equal leg length Surgeon: Glenroy He gasoline truck operator: Faizan Luna Type of Anesthesia: Spinal Anesthesiologist: Ok Linares Special Medications: 2 g Ancef, 1 g TXA at incision, 1 g TXA closure, 10 mg Decadron, joint cocktail (5 mg Duramorph, 30 mL of 0.5% Ropivicaine, 1000 units of epinephrine, 30 mg of Toradol) Specimen's removed: Bony cuts Estimated Blood Loss (mL): 200 Fluids Replaced: 1500 Description of Procedure: Components used: 1. Insignia Corinna femoral stem size 1 high offset 2. [place]inna trident 2 acetabular shell size 48 mm 3. [place]inna X3 polyethylene D 4. [place]inna Biolox delta 32mm, 0mm femoral head Brief history operative indications: 58 yo F who failed conservative measures for their hip osteoarthritis. X-rays were consistent with osteoarthritis including joint space narrowing, osteophyte formation and subchondral cysts. Total hip replacement was discussed with the patient with risks and benefits including but not limited to blood loss, DVTs, PEs, neurovascular damage, dislocation, general risks of anesthesia including loss of life. Patient demonstrated an understanding medical clearance is obtained the patient was consented for surgery. Procedure: On the date of procedure the patient's right hip was marked in the preoperative area. Patient was then taken back to the operating room where anesthesia assumed control of the C-spine and airway and administered anesthetic. Patient was transferred to the operating table and placed in the supine position. The hips were placed at the break of the bed and a sacral bump was placed. The right lower extremity was then prepped out in a sterile fashion using chlorhexidine while the surgeon scrubbed. The PA was vital in the positioning of the patient. Upon reentering the room the right lower extremity was draped in the standard orthopedic fashion and the incision was marked. A timeout was called and everyone agreed upon the side, the site, the procedure be performed, antibody given, and patient's identity. At this time incision was made through skin, subcutaneous tissue, and fat down to fascia. The fascia was then incised and the TFL was retracted laterally. A retractor was placed on the lateral border of the femoral neck. Attention was directed to the inferior portion of the approach and all crossing vessels were identified and appropriately coagulated. A retractor was then placed on the medial portion of the femoral neck. The anterior capsule was then cleared of all soft tissue and then H shaped capsulotomy was made. The retractors were then placed inside the capsule. The femoral neck was identified and a cleanup cut was made. At this time a power corkscrew was used to remove the femoral head. Attention was then turned toward the acetabulum where the soft tissues were appropriately retracted and the acetabulum was sequentially reamed to 48 mm. A 48 mm cup was then selected and impacted into place. Acetabular liner was impacted into place and locking mechanism was verified. The position of the acetabular cup was then verified under live fluoroscopy. Attention was then turned to the femur. Soft tissue releases on the medial and lateral femoral neck were appropriately done, the leg was externally rotated and lateralized. A Moreno retractor was placed medially and proximally to the greater trochanter this allowed appropriate visualization and exposure of the femoral canal. Rongeour was then used to remove excess lateral bone. A canal finder and entry broach were used to open the proximal canal. Once we verified we were down the femoral canal we subsequently broached up to a size 1 femur. The appropriate neck was placed in the previously selected head was trialed with a 0 mm neck. Traction was pulled and the hip was reduced with internal rotation. Once it was appropriately reduced and stability was checked. There was minimal shuck, equal leg lengths and appropriate stability with hyperextension and external rotation as well as with 90? flexion and internal rotation. Fluoroscopy was then also used to verify the position of the components and leg lengths using the contralateral side for comparison. The trial components were then dislocated the proximal femur was again exposed and the components were removed from the wound. The final components were verified and opened. The wound was copiously irrigated out with normal saline. The acetabulum was checked for any residual debris. The final components were placed and impacted. Traction and internal rotation were again used to reduce the hip. After adequate reduction the hip remained stable with appropriate leg lengths. The final components were once again checked with live fluoroscopy and were found to be satisfactory. The wound was then copiously irrigated with normal saline once more, and hemostasis was obtained. Closure was then done using #1 Vicryl runner to close the fascia. A 2-0 vicryl interuppted sutures were used to close the subcutaneous skin. A 3-0 Monocryl and Steri-Strips were used for final skin closure. A Silverlon dressing was placed. Patient was awakened by anesthesia and transferred to the [facility]. Patient was then transferred to the PACU for recovery. During the course of the procedure the physician supply chain logistics manager (PE) played a vital role. Their intimate knowledge of my steps in the procedure aided in safe and expedient completion of the procedure. The PE played a vital rolls in positioning particularly in obtaining the appropriate positioning of the sacral bump. The PE was also vital in the retraction of soft tissues during the exposure and especially the femoral work as this is a vital part of the procedure to prevent complications and fractures. The PE was also vital and protecting soft tissues during times of bony cuts and reaming. He also played a vital role in closure with my direct supervision. The PE was also important during reduction and dislocation of the joint and trials intraoperatively. Postoperative plan: Patient will get 24 hours postop antibiotics. Patient will get in-house physical therapy and will be weight-bear as tolerated. Patient will follow up in office in 2 weeks for a wound check and x-rays. Aspirin 81 mg twice daily. Complications No intraoperative complications Admit VTE Documentation VTE Present on Admission: No VTE Mechan Device Prophylaxis: SCD's and Thigh High TIBURCIO Hose VTE Pharm Prophylaxis ordered?: Yes
--- NOTE | 2023-07-29 14:46 | HP.PTEVAL ---
Patient's Visit Information Visit Information Visit Information: LUIS DAVIS is a 58 year old F referred to Physical Therapy by Dr. Glenroy He MD with a diagnosis of R GENTRY, DOS: 07/27/23. Date of Evaluation: 07/29/23 Physical Therapist: Mihir Jordan DPT Visit Plan Frequency: 2x /Week Duration: 6 Weeks Plan: Start with ROM progression, HS stretching, functional movements and gait. working on gait progression to no AD as able, stairs with 1 HR and gentle ROM. May use Ice as needed, manual to reduce muscle spasming HEP at IE: quad set 2x10x5, standing marching 2x10 at chair, repeated sit to stand 2x10, standing hip abd 2x10 at chair Subjective Subjective: Pt. is here today for her initial evaluation with R GENTRY DOS: 07/27/23. Pt. had an anterior approach for her R GENTRY. Pt. reports overall doing well. She arrives using FWW, but has been attempting to use 1 crutch at home without issues. Pt. has been HEP compliant with her exercises from hospital, but is having issues with her SLR. 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. Pt. is hoping to return in ~10 weeks. She denies N/T, no calf pain, no fever or blurred vision. Pt. has been using stairs at home with step to pattern without issues as well. She is hopeful to get back to going to grandchildren's sporting events and doing work and household tasks with out limitations. Pain R LE: Pain Intensity (Out of 10): 5 Pain Intensity Range: 2 and 5 Objective Objective: POSTURE: Pt. has pretty normal posture in stance. Slight lateral wt. shift to L side. Able to stand without use of AD. PALPATION: Pt. has tenderness along incision. Incision still covered, to be removed next week. NEURO: normal sensation and normal DTR of BLEs. Pt. is able to rise on heels and toes without issues. ROM: R HIP: PROM: flexion 80deg, ext 0deg, abd 30deg, MMT: RLE: ankle 5/5 throughout; knee: ext 22.3#, flexion: 14.1; hip: flexion 0#, ext 0#. LLE: ankle 5/5 throughout; knee: ext 37.4#, flexion 31.8#; hip: flexion 17.4#. GAIT: Pt. ambulates well with FWW. Pt. does have decreased L step length and decreased R stance phase with FWW. STAIRS: Pt. ascends with 1 HR with step to pattern, descend with reciprocal with 1 HR. Balance/Special Test Scores Lower Extremity Functional Score: 22 TUG Test Time Seconds: 18.7 30 Second Chair Rise Test Seconds: 8 WOMAC Total Score: 65 WOMAC Percentatge: 32.3000 Goals Goal 1:: LTG: Pt. to be I with HEP. Goal Time Frame: 4-6 Weeks Goal 2:: STG: Pt. to complete SLR x10 indicating improved hip flexor strength. Goal Time Frame: 2-4 Weeks Goal 3:: LTG: Pt. to have symmetrical strength between BLEs. Goal Time Frame: 6-8 Weeks Goal 4:: STG: Pt. to ambulate with normal gait pattern with use of SPC. Goal Time Frame: 2-4 Weeks Goal 5:: LTG: Pt. to complete 1200' during 6 Min walk test without AD. Goal Time Frame: 6-8 Weeks Goal 6:: LTG: Pt. to negotiate 1 flight of stairs with 1 HR with reciprocal pattern. Goal Time Frame: 4-6 Weeks Rehabilitation Potential Physical Therapy Diagnosis: Pt. has signs and symptoms consistent with R GENTRY, DOS: 07/27/23. Pt. has signs and symptoms consistent with R GENTRY with subsequent hypomobility, weakness, difficulty walking. Pt. would benefit from PT to address to above limitations progressing back to all work and recreational activities without limitations. Rehabilitation Potential: Excellent Anticipated Interventions Patient/Client Instruction: Educate patient on: Condition, Plan of Care, Risk Factors and Benefits of Fitness Program For the Purpose of:: To improve decision making, To facilitate caregiver knowledge, To improve self management, To prevent re-injury, To improve ability to perform tasks related to life management and To improve tolerance to ADL's Therapeutic Exercise to Include: Strength training, Power training, Endurance training, Balance training, Postural training, Flexibilty training, Gait and locomotor training, Passive ROM and Active ROM For the Purpose of:: To decrease pain, To increase ROM, To improve nutrient delivery to tissue, To increase oxygenation perfusion, To improve muscle performance and motor function and To improve ability to perform ADL's Text: Thank you for the opportunity to evaluate your patient. For Medicare and Medicare HMO plans, please review the plan of care and approve it. It will need to be FAXED BACK to us at [phone] for Medicare purposes. For Medicare only, by signing this I certify the plan of care. Please let me know if there are questions or concerns regarding this plan of care. Physician Signature: Date:
--- NOTE | 2023-09-14 13:25 | HP.PTDCSUM ---
Discharge Summary D/C summary: It has been my pleasure to treat LUIS DAVIS referred by Dr. Glenroy He MD, with the diagnosis of R GENTRY, DOS: 07/27/23 for a total of 9 visit(s). Discharge Date: 09/14/23 Please see the following information for a summary of their discharge status. Subjective Subjective: Pt. reports being 90% better overall. She reports occasional soreness, but no sharp pain. Pt. is planning to go back to work in ~6 weeks. Pt. pleased so far. She saw her physician whom was also pleased with progress. Pain R LE: Pain Intensity (Out of 10): 0 Overall Improvement % Improvement: 90 Objective Objective/Function: ROM: R knee: 0-0-131deg. MMT: R knee: ext 35#, flexion 25#; L knee: ext 42#, flexion 24.3# gait: pt. has a fairly normal gait pattern, slight limp during R stance phase, but otherwise normal. STAIRS: Pt. ascend well with reports of mild weakness. No issues with descending. Use of 1 HR. TUsec without AD. Luis is overall doing great. Pt. will be DC from PT at this point in time. She plans on continuing to work on walking progression. Goals Goal 1:: LTG: Pt. to be I with HEP. Goal Progress: Goal Met Goal 2:: STG: Pt. to complete SLR x10 indicating improved hip flexor strength. Goal Progress: Goal Met Goal 3:: LTG: Pt. to have symmetrical strength between BLEs. Goal Progress: Goal Met Goal 4:: STG: Pt. to ambulate with normal gait pattern with use of SPC. Goal Progress: Goal Met Goal 5:: LTG: Pt. to complete 1200' during 6 Min walk test without AD. Goal Progress: Goal Met Goal 6:: LTG: Pt. to negotiate 1 flight of stairs with 1 HR with reciprocal pattern. Goal Progress: Goal Met Plan Plan: PT. to be DC from PT to HEP at this point in time. D/C Information Discharge Comments: Pt. was treated for her R TKA. Pt. is overall doing great. She has great ROM and close to symmetrical strength. Pt. reports overall doing well and is in no longer need for PT. d/c sentence: If there are questions or concerns regarding this patient's physical therapy, please feel free to call me at [phone]. Thank you for the referral of this patient. Sincerely, LOVE VeraT Balance/Gait/Functional tests Balance/Special Test Scores Lower Extremity Functional Score: 68 TUG Test Time Seconds: 8 Tug Test: <10 sec.=free mobile 30 Second Chair Rise Test Seconds: 8 6 Minute Walk Test: 1332feet no AD WOMAC Total Score: 65 WOMAC Percentage: 32.3000 Improvement % Improvement: 90
== END 2023-09-14 19:00 | disposition home or self-care (01) ==
LOC: PT 11:00
PROVIDERS: PCP Family Medicine; Visit Provider Specialist
DX: Z96.641 Presence of right artificial hip joint (principal); Z47.1 Aftercare following joint replacement surgery
CPT/HCPCS: 97110; 97140; 97161; 97530

== ENCOUNTER → 2024-05-01 | Outpatient (CLI) | payer OTHER, SELFPAY | END | disposition home or self-care (01) | LOC: SL 19:59 | PROVIDERS: PCP Family Medicine; Referring Provider Nurse Practitioner Acute Care; Visit Provider Nurse Practitioner Acute Care | DX: G47.10 Hypersomnia, unspecified (principal) ==

== ENCOUNTER → 2024-05-23 | Outpatient (CLI) | payer OTHER, SELFPAY | END | disposition home or self-care (01) | LOC: SL 09:53 | PROVIDERS: PCP Family Medicine; Visit Provider Nurse Practitioner Acute Care | DX: Z46.89 Encounter for fitting and adjustment of other specified devices (principal) ==

== ENCOUNTER → 2024-12-10 | Outpatient (CLI) | payer OTHER, SELFPAY | END | disposition home or self-care (01) | LOC: MFPLAB 12:09 → LABSPEC 15:00 | PROVIDERS: PCP Family Medicine; Referring Provider Family Medicine; Visit Provider Family Medicine | DX: N39.0 Urinary tract infection, site not specified (principal) | CPT/HCPCS: 87086; 87088; 87186 ==

== ENCOUNTER → 2025-01-04 | Outpatient (CLI) | payer OTHER, SELFPAY ==
--- NOTE | 2025-01-04 14:30 | BI_ITS ---
EXAM: SCRN MAMM (CAD)W/JANEY BILAT DATE: 01/04/2025 CLINICAL HISTORY: F, Age 59 y/o , SCREENING FOR BREAST CANCER FM HX Sister with breast cancer. Mother with breast cancer. History of prior right excisional breast biopsy. TECHNIQUE: Procedure Code: [id number] Modality: MG Procedure: SCRN MAMM (CAD)W/JANEY BILAT COMPARISON: Prior exam(s) dated March 03, 2023.. FINDINGS: TISSUE DENSITY: The breasts are almost entirely fatty. Bilateral Breast Mammographic Findings: No significant masses, calcifications or other abnormalities are identified. Stable bilateral fat containing axillary lymph nodes No suspicious masses, areas of developing architectural distortion, or suspicious calcifications. There has been no significant interval change. BI/SCRN MAMM (CAD)W/JANEY BILAT IMPRESSION: Stable bilateral screening mammogram OVERALL FINAL ASSESSMENT BI-RADS 2: BENIGN RECOMMENDATION: Routine annual follow-up in 1 Year A letter with findings and recommendations will be mailed to the patient. Reading Location: [place] [id number]
== END | disposition home or self-care (01) ==
LOC: OPBI 14:30
PROVIDERS: PCP Family Medicine
DX: Z12.31 Encounter for screening mammogram for malignant neoplasm of breast (principal); Z80.3 Family history of malignant neoplasm of breast
CPT/HCPCS: 77063; 77067